=== PATIENT | male | born 1945 | race Caucasian/White ===

== ENCOUNTER 2016-12-14 12:43 | Emergency (ER) | payer MEDICARE, OTHER ==
[2016-12-14 13:03] VITALS: BP 149/94; PULSE 65; RESP 18; TEMP 98
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
== END 2016-12-14 13:47 | disposition home or self-care (01) ==
LOC: SUPCPDRO 12:43 → EC 12:43
DX: G89.4 Chronic pain syndrome (principal); Z76.0 Encounter for issue of repeat prescription; K21.9 Gastro-esophageal reflux disease without esophagitis; E78.5 Hyperlipidemia, unspecified; F32.9 Major depressive disorder, single episode, unspecified; Z87.891 Personal history of nicotine dependence; Z79.891 Long term (current) use of opiate analgesic; Z79.899 Other long term (current) drug therapy
CPT/HCPCS: 99282

== ENCOUNTER 2016-12-19 15:44 | Emergency (ER) | payer MEDICARE, OTHER ==
[2016-12-19 15:53] VITALS: BP 153/84; PULSE 104; RESP 17; TEMP 98.8
[2016-12-19] MEDS ORDERED: KETOROLAC 60 MG/2 ML VIAL IM STA (16:04)
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
== END 2016-12-19 16:22 | disposition home or self-care (01) ==
LOC: EC 15:44
DX: G89.29 Other chronic pain (principal); K21.9 Gastro-esophageal reflux disease without esophagitis; E78.5 Hyperlipidemia, unspecified; F32.9 Major depressive disorder, single episode, unspecified; Z86.711 Personal history of pulmonary embolism; Z86.718 Personal history of other venous thrombosis and embolism; Z87.891 Personal history of nicotine dependence; Z79.891 Long term (current) use of opiate analgesic; Z79.899 Other long term (current) drug therapy
CPT/HCPCS: 99283; 96372; J1885

== ENCOUNTER 2016-12-20 13:59 | Emergency (ER) | payer MEDICARE, OTHER ==
[2016-12-20 14:06] VITALS: RESP 18
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
[2016-12-20] MEDS ORDERED: HYDROcodone/APAP 5-325MG 1 EACH TAB PO STA (16:19)
[2016-12-20 16:23] VITALS: BP 143/98; PULSE 80; TEMP 98
== END 2016-12-20 16:30 | disposition home or self-care (01) ==
LOC: EC 13:59
DX: G89.4 Chronic pain syndrome (principal); M54.9 Dorsalgia, unspecified; F11.10 Opioid abuse, uncomplicated; E78.5 Hyperlipidemia, unspecified; F32.9 Major depressive disorder, single episode, unspecified; Z87.891 Personal history of nicotine dependence; Z79.899 Other long term (current) drug therapy; Z98.1 Arthrodesis status
CPT/HCPCS: 82075; 99284

== ENCOUNTER → 2017-06-18 | Outpatient (CLI) | payer MEDICARE, OTHER ==
--- NOTE | 2017-06-18 12:59 | XR ---
EXAMINATION TYPE: XR cervical spine comp DATE OF EXAM: 06/18/2017 TECHNIQUE: Frontal, lateral, oblique, swimmers, and open mouth view of the cervical spine are obtaine d. HISTORY: M54.2 cervicalgia COMPARISON: 04/16/2016 FINDINGS: There is redemonstration of surgical fusion of C3-6 with intervertebral disc spacers, anter ior fusion plate and vertebral body cortical screws. Multilevel uncovertebral hypertrophy is seen thr oughout the cervical spine. The cervical spine is visualized in its entirety from C1 thru the top of T1 level, it is satisfactory in alignment without evidence of acute fracture or dislocation. The pre -vertebral soft tissue appears within normal limits. The C1-C2 articulation is within normal limits on the open mouth view. The oblique images demonstrated at least mild neural foraminal narrowing at C3-4 and C4-5 on the right and no significant neural foraminal narrowing on the left. No hardware fra cture is appreciated. IMPRESSION: 1. No acute fracture or dislocation is seen in the cervical spine. 2. No hardware fracture. 3. Multilevel uncovertebral hypertrophy resulting in at least mild neural foraminal narrowing at C3-C 4 and C4-C5 on the right.
== END | disposition home or self-care (01) ==
LOC: RADXRMAIN 12:03
PROVIDERS: ATTEND Nurse Practitioner Family
DX: M99.71 Connective tissue and disc stenosis of intervertebral foramina of cervical region (principal)
CPT/HCPCS: 72050

== ENCOUNTER → 2017-12-22 | Outpatient (CLI) | payer MEDICARE, OTHER ==
[2017-12-22 14:01] VITALS: BP 132/77; RESP 18
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
== END ==
LOC: PNWHC3 13:24
PROVIDERS: ATTEND Anesthesiology
DX: G89.29 Other chronic pain (principal); M47.22 Other spondylosis with radiculopathy, cervical region; M96.1 Postlaminectomy syndrome, not elsewhere classified; K21.9 Gastro-esophageal reflux disease without esophagitis; Z79.899 Other long term (current) drug therapy; Z79.891 Long term (current) use of opiate analgesic; Z87.891 Personal history of nicotine dependence
CPT/HCPCS: 99211

== ENCOUNTER → 2018-01-08 | Outpatient (CLI) | payer MEDICARE, OTHER ==
--- NOTE | 2018-01-08 19:09 | MR ---
EXAMINATION TYPE: MR lumbar spine wo/w con DATE OF EXAM: 01/08/2018 11:35 AM COMPARISON: NONE HISTORY: LBP, BLE radic, hx spinal fusion 2004 CONTRAST: The patient was injected with 9 mL intravenous Gadavist gadolinium contrast. Multiplanar, MultiSpin echo imaging of the lumbar spine was performed. L1-L2: Normal disc appearance without desiccation. No herniation, protrusion or disc bulging. No ca nal stenosis is present. Foramina are patent bilaterally. L2-L3: Normal disc appearance without desiccation. Mild disc bulging noted. No canal stenosis is pres ent. Foramina are patent bilaterally. L3-L4: There is evidence of mild disc desiccation. There is posterior central disc protrusion. Mild e ffacement ventral thecal sac. No evidence for central stenosis or lateral recess stenosis. Mild bilat eral foraminal encroachment left greater than right. L4-L5: Moderate disc desiccation noted. Posterocentral mild disc herniation effaces the ventral theca l sac. No evidence for lateral recess stenosis or central stenosis. Bilateral foraminal encroachment noted. L5-S1: Postoperative changes of fusion. Pedicular screws are in place. Alignment is anatomic. Enhanci ng granulation tissue noted. No evidence for recurrent or residual disease. Lumbar segments are intact. No paraspinal masses are identified. Conus medullaris has a normal appe arance. Left renal cyst identified. IMPRESSION: 1. Multilevel degenerative disc disease. 2. Postoperative changes of fusion at L5-S1 with appropriate postoperative alignment. 3. Disc protrusions at L3-4 and L4-5 as discussed above.
== END | disposition home or self-care (01) ==
LOC: RADMRIMAIN 09:52
PROVIDERS: ATTEND Anesthesiology
DX: M51.36 Other intervertebral disc degeneration, lumbar region (principal); M51.26 Other intervertebral disc displacement, lumbar region; Z98.1 Arthrodesis status
CPT/HCPCS: 82565; 72158; 36415; A9581

== ENCOUNTER → 2018-01-26 | Day surgery (SDC) | payer MEDICARE, OTHER ==
[2018-01-21 13:12] VITALS: BMI 29.6
== END ==
LOC: ORPAIN 09:23
PROVIDERS: ATTEND Pain Medicine Pain Medicine

== ENCOUNTER → 2018-05-03 | Outpatient (CLI) | payer MEDICARE, OTHER ==
--- NOTE | 2018-05-03 14:36 | XR ---
EXAMINATION TYPE: XR foot complete bilateral, 3 views each side DATE OF EXAM: 05/03/2018 COMPARISON: NONE HISTORY: 73-year-old male with heel spurring fracture third right metatarsal, pain FINDINGS: Left: There is some degenerative joint space narrowing at the second MTP joint with marginal spurring and s ubchondral cystic change. Small plantar calcaneal spur. No acute fracture, subluxation, or dislocatio n. Right: Impacted fracture deformity third metatarsal head and neck with irregularity and destruction of the a rticular surface. Degenerative joint space narrowing and marginal spurring and subchondral cystic krystina nge within the second MTP joint. Tiny type I accessory navicular. Tiny plantar calcaneal spur. No acu te fracture, subluxation, or dislocation seen. IMPRESSION: 1. Right: Impacted chronic fracture deformity of the third metatarsal head and neck with posttraumati c osteoarthrosis. Second MTP joint OA is also present with tiny plantar calcaneal spur. 2. Left: Moderate second MTP joint OA and small plantar calcaneal spur.
== END | disposition home or self-care (01) ==
LOC: RADXRMAIN 10:52
PROVIDERS: ATTEND Family Medicine
DX: M77.31 Calcaneal spur, right foot (principal); S92.331A Displaced fracture of third metatarsal bone, right foot, initial encounter for closed fracture; M19.172 Post-traumatic osteoarthritis, left ankle and foot; M19.171 Post-traumatic osteoarthritis, right ankle and foot

== ENCOUNTER → 2018-05-25 | Day surgery (SDC) | payer MEDICARE, OTHER ==
[2018-05-23 13:44] VITALS: BMI 28.8
[~2018-05-25] MED LIST: LACTATED RINGERS 1,000 ML IV SCH
== END ==
LOC: ORPAIN 09:00
PROVIDERS: ATTEND Specialist
DX: Z53.9 Procedure and treatment not carried out, unspecified reason (principal)

== ENCOUNTER 2019-03-22 11:36 | Emergency (ER) | payer MEDICARE, OTHER ==
[2019-03-22 11:46] VITALS: TEMP 97.9
[2019-03-22] MEDS ORDERED: SODIUM CHLORIDE 0.9% 1,000 ML IV STA (11:51)
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
[2019-03-22 12:26] LABS: Basophils % (A) 0 %; Eosinophils # (A) 0.2 k/uL (0-0.7); Eosinophils % (A) 3 %; HCT 41.9 % (39.0-53.0); HGB 13.9 gm/dL (13.0-17.5); Lymphocytes # (A) 2.3 k/uL (1.0-4.8); Lymphocytes % (A) 31 %; MCH 30.9 pg (25.0-35.0); MCHC 33.2 g/dL (31.0-37.0); MCV 93.2 fL (80.0-100.0); Mean Platelet Volume 7.4; Monocytes # (A) 0.5 k/uL (0-1.0); Monocytes % (A) 7 %; Neutrophils # (A) 4.2 k/uL (1.3-7.7); Neutrophils % (A) 56 %; Platelet Count 266 k/uL (150-450); RDW 14.1 % (11.5-15.5); WBC 7.5 k/uL (3.8-10.6)
[2019-03-22 12:51] LABS: ALT 24 U/L (21-72); AST 24 U/L (17-59); African American GFR (CKD) >90 (>60 ml/min/1.73 sqM); Albumin 4.6 g/dL (3.5-5.0); Alkaline Phosphatase 89 U/L (38-126); Amylase 39 U/L (30-110); Anion Gap 11 mmol/L; Blood Urea Nitrogen 25 mg/dL (9-20); Calcium 9.9 mg/dL (8.4-10.2); Carbon Dioxide 26 mmol/L (22-30); Chloride 102 mmol/L (98-107); Glucose 109 mg/dL (74-99); Lipase 23 U/L (23-300); Potassium 4.5 mmol/L (3.5-5.1); Sodium 139 mmol/L (137-145); Total Bilirubin 0.7 mg/dL (0.2-1.3); Total Protein 7.7 g/dL (6.3-8.2)
--- NOTE | 2019-03-22 12:58 | XR ---
EXAMINATION TYPE: XR shoulder complete RT DATE OF EXAM: 03/22/2019 COMPARISON: NONE HISTORY: Pain TECHNIQUE: Shoulder examined in 3 views FINDINGS: The humeral head articulates with the glenoid. The acromio-clavicular junction is normal. No acute fractures or dislocations are evident. A follow up study can be performed 7-10 days from acute trauma for continued pain. IMPRESSION: 1. Normal Shoulder
--- NOTE | 2019-03-22 13:06 | XR ---
EXAMINATION TYPE: XR abdomen acute w cxr DATE OF EXAM: 03/22/2019 COMPARISON: None HISTORY: Pain TECHNIQUE: Acute abdominal series performed with frontal chest upright and supine views of the abdome n FINDINGS: Degenerative disc changes are present L4 prior right pedicle screws and disc spacer present L5-S1. Psoas margins are normal. Moderate fecal debris is throughout the colon. No suspicious air-fl uid levels or differential air-fluid levels are present. No free air is evident. No mass effect is ev ident. Hiatal hernia is not excluded. Lungs appear clear. IMPRESSION: 1. Moderate fecal retention. 2. No acute changes.
[2019-03-22 13:12] LABS: Appearance,Urine Clear (Clear); Bilirubin,Urine Negative (Negative); Blood,Urine Negative (Negative); Color,Urine Yellow; Glucose,Urine (UA) Negative (Negative); Ketones,Urine Negative (Negative); Leukocyte Esterase,Urine Negative (Negative); Nitrite,Urine Negative (Negative); Protein,Urine Negative (Negative); Specific Gravity,Urine 1.019 (1.001-1.035); Urobilinogen,Urine <2.0 mg/dL (<2.0)
[2019-03-22] MEDS ORDERED: MORPHINE SULFATE 4 MG/ML SYRINGE IVP STA (13:39)
[2019-03-22] MEDS ORDERED: MAG HYDROX/AL HYDROX/SIMETH 30 ML, HYOSCYAMINE ELIXIR 10 ML, CIMETIDINE HCL 300 MG, LID... PO STA ×4 (13:39)
[2019-03-22] MEDS ORDERED: PANTOPRAZOLE 40 MG/10 ML VIAL IVP STA (13:39)
--- NOTE | 2019-03-22 13:44 | US ---
EXAMINATION TYPE: US gallbladder DATE OF EXAM: 03/22/2019 COMPARISON: NONE CLINICAL HISTORY: Pain. RUQ pain EXAM MEASUREMENTS: Liver Length: 14 cm Gallbladder Wall: 0.3 cm CBD: 0.5 cm Right Kidney: 10.0 x 5.6 x 4.5 cm Pancreas: Obscured by bowel gas Liver: Limited due to rib shadow and body habitus. Gallbladder: No stones seen Evidence for sonographic Sullivan's sign: No CBD: wnl Right Kidney: wnl IMPRESSION: 1. Normal right upper quadrant ultrasound. 2. Limitation due to bowel gas body habitus.
[2019-03-22 14:25] VITALS: BP 153/91; PULSE 65; RESP 18
== END 2019-03-22 14:30 | disposition home or self-care (01) ==
LOC: EC 11:36
DX: R10.13 Epigastric pain (principal); M25.511 Pain in right shoulder; R11.0 Nausea; K21.9 Gastro-esophageal reflux disease without esophagitis; F32.9 Major depressive disorder, single episode, unspecified; G47.30 Sleep apnea, unspecified; Z86.718 Personal history of other venous thrombosis and embolism; Z86.711 Personal history of pulmonary embolism; Z87.19 Personal history of other diseases of the digestive system; Z87.828 Personal history of other (healed) physical injury and trauma; Z87.891 Personal history of nicotine dependence; Z98.1 Arthrodesis status; Z99.89 Dependence on other enabling machines and devices; Z98.890 Other specified postprocedural states; Z79.891 Long term (current) use of opiate analgesic; Z79.899 Other long term (current) drug therapy; Z91.048 Other nonmedicinal substance allergy status
CPT/HCPCS: 36415; 80053; 82150; 83605; 83690; 85025; 81003; 87086; 74022; 73030; 76705; 99285; 96374; 96375; 96361; J2270; C9113

== ENCOUNTER 2019-04-29 10:14 | Emergency (ER) | payer MEDICARE, OTHER ==
[2019-04-29 10:18] VITALS: RESP 18
[2019-04-29] MEDS ORDERED: HYDROmorphone 1 MG/ML 1 ML SYRINGE IM STA (11:07)
[2019-04-29] MEDS ORDERED: ORPHENADRINE 30 MG/ML 2 ML VIAL IM STA (11:08)
[2019-04-29] MEDS ORDERED: ONDANSETRON 4 MG ODT STARTER PACK 2 TAB BTL PO STA (11:09)
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
--- NOTE | 2019-04-29 11:41 | XR ---
EXAMINATION TYPE: XR shoulder complete RT DATE OF EXAM: 04/29/2019 COMPARISON: 03/22/2019 HISTORY: Pain right shoulder TECHNIQUE: Three-view right shoulder FINDINGS: Humeral head articulates with the glenoid. No acute fractures or dislocations are evident. Acromiohumeral space is preserved. No clavicular junction appears normal. IMPRESSION: 1. No acute osseous abnormality right shoulder.
--- NOTE | 2019-04-29 11:42 | XR ---
EXAMINATION TYPE: XR chest 2V DATE OF EXAM: 04/29/2019 COMPARISON: None INDICATION: Pain right shoulder TECHNIQUE: Frontal and lateral views of the chest are obtained. FINDINGS: The heart size is normal. The pulmonary vasculature is normal. The lungs are clear. No acute osseous abnormality is evident. No pneumothorax is evident. IMPRESSION: 1. No acute pulmonary process.
[2019-04-29 12:48] VITALS: BP 122/87; PULSE 77; TEMP 97.8
== END 2019-04-29 12:48 | disposition home or self-care (01) ==
LOC: EC 10:14
DX: M62.838 Other muscle spasm (principal); R11.0 Nausea; R03.0 Elevated blood-pressure reading, without diagnosis of hypertension; K21.9 Gastro-esophageal reflux disease without esophagitis; G47.30 Sleep apnea, unspecified; F32.9 Major depressive disorder, single episode, unspecified; Z87.891 Personal history of nicotine dependence; Z91.048 Other nonmedicinal substance allergy status; Z79.891 Long term (current) use of opiate analgesic; Z79.899 Other long term (current) drug therapy; Z99.89 Dependence on other enabling machines and devices; Z98.1 Arthrodesis status
CPT/HCPCS: 93005; 73030; 71046; 99284; 96372 ×2; J2360; J1170; S0119

== ENCOUNTER → 2019-05-20 | Outpatient (CLI) | payer MEDICARE, OTHER ==
--- NOTE | 2019-05-20 09:47 | MR ---
EXAMINATION TYPE: MR shoulder RT wo con DATE OF EXAM: 05/20/2019 8:32 AM COMPARISON: NONE HISTORY: Rt shoulder pain x 6 wks, no trauma TECHNIQUE: Multiplanar, multisequence imaging of the right shoulder is performed without contrast. FINDINGS: The study is compromised by patient motion artifact. There is no evidence of an os acromiale. There is mild to moderate inflammatory hypertrophic changes in the right AC joint. There is a prominent, 9.5 mm synovial cyst in the right humeral head, an indir ect sign of impingement. There is a 6.2 cm recommend tear involving the anterior fibers of the supraspinatus tendon. No cysts full-thickness tear is seen. No muscular retraction is seen. There is a moderate amount of fluid in the subcoracoid recess as well as surrounding the bicipital te ndon. Biceps tendon is normally situated within the biceps tendon sheath and inserts normally upon th e biceps anchor. IMPRESSION: 1. LIMITED STUDY. 2. 6.2 MM RIM RENT TEAR INVOLVING THE ANTERIOR FIBERS OF SUPRASPINATUS TENDON. 3. INCREASED FLUID SURROUNDING THE BICEPS TENDON MAY REFLECT BICIPITAL PERITENDINITIS. 4. PSEUDOCYSTIC CHANGE IN THE RIGHT HUMERAL HEAD, AN INDIRECT SIGN OF IMPINGEMENT.
== END | disposition home or self-care (01) ==
LOC: RADMRIMAIN 07:20
PROVIDERS: ATTEND Physician Assistant Medical
DX: S46.011A Strain of muscle(s) and tendon(s) of the rotator cuff of right shoulder, initial encounter (principal); M85.611 Other cyst of bone, right shoulder

== ENCOUNTER → 2019-08-25 | Outpatient (CLI) | payer MEDICARE, OTHER | END | disposition home or self-care (01) | LOC: RADMRIMAIN 18:58 | PROVIDERS: ATTEND Physical Medicine & Rehabilitation | DX: Z53.9 Procedure and treatment not carried out, unspecified reason (principal) ==

== ENCOUNTER 2019-09-09 17:46 | Emergency (ER) | payer MEDICARE, OTHER ==
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
[2019-09-09 18:07] LABS: Glucose,Whole Blood 106 mg/dL (75-99)
[2019-09-09] MEDS ORDERED: DIPH,PERTUS(ACELL)TETVAC-LF 0.5 ML VIAL IM ONE (18:08)
[2019-09-09 18:15] LABS: Basophils % (A) 0 %; Eosinophils # (A) 0.2 k/uL (0-0.7); Eosinophils % (A) 1 %; HCT 40.3 % (39.0-53.0); HGB 12.9 gm/dL (13.0-17.5); Lymphocytes # (A) 1.8 k/uL (1.0-4.8); Lymphocytes % (A) 14 %; MCH 30.7 pg (25.0-35.0); MCV 95.9 fL (80.0-100.0); Mean Platelet Volume 7.5; Monocytes # (A) 0.5 k/uL (0-1.0); Monocytes % (A) 4 %; Neutrophils # (A) 10.4 k/uL (1.3-7.7); Neutrophils % (A) 80 %; Platelet Count 288 k/uL (150-450); RDW 11.8 % (11.5-15.5)
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
[2019-09-09 18:29] LABS: Prothrombin Time 10.6 sec (9.0-12.0)
[2019-09-09 18:32] LABS: ALT 33 U/L (4-49); AST 69 U/L (17-59); African American GFR (CKD) >90 (>60 ml/min/1.73 sqM); Alcohol <10 mg/dL; Alkaline Phosphatase 77 U/L (38-126); Amylase 30 U/L (30-110); Anion Gap 8 mmol/L; Blood Urea Nitrogen 22 mg/dL (9-20); Carbon Dioxide 25 mmol/L (22-30); Chloride 105 mmol/L (98-107); Glucose 103 mg/dL (74-99); Non-African American GFR(CKD) >90 (>60 ml/min/1.73 sqM); Sodium 138 mmol/L (137-145); Total Bilirubin 0.9 mg/dL (0.2-1.3)
[2019-09-09 18:37] LABS: Creatine Kinase 253 U/L (55-170)
[2019-09-09 18:41] LABS: Potassium 4.6 mmol/L (3.5-5.1)
[2019-09-09 18:50] LABS: Creatine Kinase MB 3.5 ng/mL (0.0-2.4); Troponin I <0.012 ng/mL (0.000-0.034)
[2019-09-09] MEDS ORDERED: HYDROmorphone 1 MG/ML 1 ML SYRINGE IVP STA ×2 (19:22→20:51)
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
[2019-09-09] MEDS ORDERED: PROPOFOL 10 MG/ML 20 ML VIAL IV ONE (20:51)
[2019-09-09 20:55] VITALS: TEMP 98
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
[2019-09-09 22:54] VITALS: PULSE 72
[2019-09-09 23:02] VITALS: BP 116/87; RESP 16
== END 2019-09-09 22:35 | disposition short-term general hospital (02) ==
LOC: EC 17:46
DX: S73.014A Posterior dislocation of right hip, initial encounter (principal); S32.401A Unspecified fracture of right acetabulum, initial encounter for closed fracture; S60.511A Abrasion of right hand, initial encounter; L98.8 Other specified disorders of the skin and subcutaneous tissue; R07.89 Other chest pain; R10.11 Right upper quadrant pain; R10.12 Left upper quadrant pain; M54.2 Cervicalgia; K21.9 Gastro-esophageal reflux disease without esophagitis; G47.30 Sleep apnea, unspecified; F32.9 Major depressive disorder, single episode, unspecified; Z87.891 Personal history of nicotine dependence; Z91.048 Other nonmedicinal substance allergy status; Z79.891 Long term (current) use of opiate analgesic; Z79.899 Other long term (current) drug therapy; Z87.39 Personal history of other diseases of the musculoskeletal system and connective tissue; Z98.1 Arthrodesis status; Z99.89 Dependence on other enabling machines and devices; Z23 Encounter for immunization; V43.53XA Car driver injured in collision with pick-up truck in traffic accident, initial encounter; Y92.410 Unspecified street and highway as the place of occurrence of the external cause
CPT/HCPCS: 36415; 86900; 86901; 80053; 82150; 82550; 82553; 83605; 83690; 84484; 85025; 85610; 85730; 86850; 80320; 72170; 71045; 72125; 70450; 71260; 74177; 90715; 99291; 27250; 99152; 99153; 96374; 90471; J1170; J2704; Q9967

== ENCOUNTER → 2019-09-09 | Outpatient (CLI) | payer MEDICARE, OTHER ==
--- NOTE | 2019-09-10 11:23 | MR ---
EXAMINATION TYPE: MR lumbar spine wo/w con DATE OF EXAM: 09/09/2019 COMPARISON: 01/08/2018 HISTORY: 74-year-old male Spondylosis, pain. Technique: Multiplanar, multisequence images of the lumbar spine were obtained before and after admin istration of 7.5 mL intravenous Gadavist gadolinium contrast. FINDINGS: Vertebral body heights are preserved. Unchanged grade 1 anterolisthesis at L3-L4 secondary to hypertrophic facet arthropathy mid to lower l umbar spine. Previous posterior and interbody fusion at L4-L5. Accelerated degenerative disc disease above the fusion weighted progressive disc height loss, disc de siccation and edematous Modic type I endplate change. Persistent posterior bulging disc at this level. Scattered ligamentum flavum thickening. [id number] multilevel degenerative disc disease throughout the remainder of the visualized spin e with variable disc desiccation, mild disc height loss, and bulging disks throughout. Stable grade 1 retrolisthesis at T11-T12. Conus medullaris is normal. No suspicious bone marrow replacement. At T12-L1, minimal bulging disc and facet arthropathy. No significant spinal canal stenosis. Mild rig ht neuroforaminal stenosis. At L1-L2, minimal bulging disc and facet arthropathy. No significant canal or foraminal stenosis. At L2-L3, mild bulging disc with ligamentum flavum thickening and facet arthropathy. Changes result i n similar moderate left and mild right neuroforaminal stenosis with mild attenuation of the thecal sa c. No significant spinal canal stenosis. At L3-L4, bulging disc with hypertrophic facet arthropathy, ligamentum flavum thickening, and promine nt dorsal epidural fat. Findings cause similar grade 1 anterolisthesis with mild narrowing of the spi nal canal. Mild right and moderate left neuroforaminal stenosis. At L4-L5, above the fusion, there is bulging disc with ligamentum flavum thickening and hypertrophic facet arthropathy. This results in moderate to severe right neuroforaminal stenosis, similar to sligh tly progressed. Similar moderate left neuroforaminal stenosis. No significant spinal canal stenosis. At the fused L5-S1 level, there is persistent [id number] right and mild left neuroforaminal kristen rowing without spinal canal stenosis. No abnormal epidural or neural enhancing granulation tissue identified. Borderline ectatic suprarenal abdominal aorta at 2.5 cm. Possible 3.6 cm aneurysm infrarenal abdomina l aorta, axial image 10. IMPRESSION: 1. Status post L5-S1 posterior and interbody fusion. Residual mild to moderate right and mild left ne uroforaminal stenosis at this level. No suspicious epidural perineural enhancement. 2. Accelerated degenerative disc disease above the fusion at L4-L5 results in edematous Modic type I endplate change in moderate to severe right neural foraminal stenosis, similar to slightly progressed . Moderate left neuroforaminal stenosis. 3. Hypertrophic facet arthropathy, ligamentum flavum thickening, bulging disc, and similar grade 1 an terolisthesis at L3-L4 causes mild spinal canal stenosis with moderate left neuroforaminal stenosis, relatively similar. 4. 3.6 cm AAA. Upper follow-up surveillance recommended.
== END | disposition home or self-care (01) ==
LOC: RADMRIMAIN 12:44
PROVIDERS: ATTEND Physical Medicine & Rehabilitation
DX: M48.07 Spinal stenosis, lumbosacral region (principal); M48.061 Spinal stenosis, lumbar region without neurogenic claudication; M51.26 Other intervertebral disc displacement, lumbar region; M43.16 Spondylolisthesis, lumbar region; M51.36 Other intervertebral disc degeneration, lumbar region; M46.96 Unspecified inflammatory spondylopathy, lumbar region
CPT/HCPCS: 72158; A9585

== ENCOUNTER → 2020-03-12 | Outpatient (CLI) | payer OTHER ==
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
== END | disposition home or self-care (01) ==
LOC: RADMRIMAIN 13:57
PROVIDERS: ATTEND Orthopaedic Surgery
DX: S83.8X1A Sprain of other specified parts of right knee, initial encounter (principal); R60.9 Edema, unspecified; S83.241A Other tear of medial meniscus, current injury, right knee, initial encounter; M17.11 Unilateral primary osteoarthritis, right knee; M25.461 Effusion, right knee

== ENCOUNTER → 2020-10-09 | Outpatient (CLI) | payer OTHER ==
--- NOTE | 2020-10-09 12:27 | CT ---
EXAMINATION TYPE: CT lumbar spine wo con DATE OF EXAM: 10/09/2020 12:05 PM COMPARISON: None HISTORY: Low back pain. CT DLP: 1039.1 mGycm Automated exposure control for dose reduction was used. Unenhanced CT of the lumbar spine was performed. Bone and soft tissue window settings are submitted as well as coronal and sagittal reconstructions. L1-L2: Normal disc space height. No disc herniation protrusion or central stenosis. No facet joint arthropathy. No evidence for foraminal encroachment. L2-L3: Normal disc space height. No disc herniation protrusion or central stenosis. No facet joint arthropathy. No evidence for foraminal encroachment. L3-L4: Moderate degenerative disc space narrowing. Posterior disc bulge with effacement of the ventra l thecal sac resulting in left lateral recess stenosis and left foraminal encroachment. No definite c entral stenosis at this time. L4-L5: Severe degenerative disc disease with vacuum disc and endplate sclerosis. Posterior disc bulge . No evidence for disc herniation or central stenosis. Facet joint arthropathy with a mild right-side d foraminal encroachment. L5-S1: Postoperative changes of lumbar laminectomy and fusion. Pedicular screws are in place. Interve rtebral body spacers are intact and well-positioned. No evidence for recurrent or residual disease. IMPRESSION: 1. Multilevel degenerative disc disease with left lateral recess stenosis at L3-4. 2. Postoperative changes L5-S1 as noted above.
== END | disposition home or self-care (01) ==
LOC: RADCTMAIN 10:36
PROVIDERS: ATTEND Orthopaedic Surgery
DX: M48.061 Spinal stenosis, lumbar region without neurogenic claudication (principal); M51.36 Other intervertebral disc degeneration, lumbar region; Z98.1 Arthrodesis status; Z98.890 Other specified postprocedural states
CPT/HCPCS: 72131

== ENCOUNTER → 2020-10-09 | Outpatient (CLI) | payer OTHER ==
--- NOTE | 2020-10-09 12:50 | XR ---
EXAMINATION TYPE: XR lumbar spine with bend/flex DATE OF EXAM: 10/09/2020 COMPARISON: CT lumbar spine 10/09/2020 HISTORY: Pain TECHNIQUE: Five-view lumbar spine supplemented with flexion and extension views. FINDINGS: There 5 lumbar-type vertebral bodies. The L1-L4 pedicles are intact. L5 and S1 pedicle scre ws. Disc spacers present L5-S1. Degenerative disc changes are present L4-5. Spondylosis is present. Very subtle anterolisthesis of L3 on L4 may be present. Posterior disc space narrowing is present thr ough the lumbar spine. There is some fusiform prominence of the distal abdominal aorta with an AP dimension estimated at 3.5 cm. The aorta may be displaced away from the lumbar spine in the lateral projection. Consider additi onal workup of the abdominal aorta. This is partially visualized on CT lumbar spine exam. IMPRESSION: 1. Degenerative disc changes throughout the lumbar spine. 2. Grade is loss of disc height is present L4-5. 3. Minimal anterolisthesis on flexion of L3 anterior on L4. 4. Additional workup of the fusiform prominence of the distal abdominal aorta is recommended.
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
--- NOTE | 2020-10-10 00:51 | MR ---
EXAMINATION TYPE: MR lumbar spine wo/w con DATE OF EXAM: 10/09/2020 COMPARISON: September 09, 2019 HISTORY: Evolving right foot drop, evaluate for disc herniation CONTRAST: Standard multiplanar, multisequence MRI departmental protocol utilizing 7.5 mL intravenous Gadavist g adolinium contrast. Lumbar vertebra have normal alignment. There is narrowing of disc spaces throughout the lumbar spine. There is metal artifact from disc prosthesis at L5-S1. There is metal artifact from posterior fusion surgery at L5-S1. There is narrowing of disc spaces at L4-5 and L5-S1. There is bilateral neural for aminal narrowing at L4-5 due to disc space narrowing and facet arthropathy. There is no lumbar parasp inal mass. I see no focal bone destruction. Contrast images show no pathologic enhancement. The visua lized sacroiliac joints are intact. There is no significant lumbar spinal stenosis. There is small po sterior disc bulging at L2-3 and L3-4 without impingement on the spinal canal. Unchanged. IMPRESSION: Posterior fusion surgery. Degenerative disc narrowing at L4-5 and L5-S1. No spinal stenosis. No fract ure. Overall no significant change compared to old exam. L4-5 neural foraminal stenosis not significa ntly changed.
== END | disposition home or self-care (01) ==
LOC: RADMRIMAIN 10:37
PROVIDERS: ATTEND Physical Medicine & Rehabilitation
DX: M48.07 Spinal stenosis, lumbosacral region (principal); M43.16 Spondylolisthesis, lumbar region; M47.816 Spondylosis without myelopathy or radiculopathy, lumbar region; M51.86 Other intervertebral disc disorders, lumbar region; M16.11 Unilateral primary osteoarthritis, right hip; Z98.1 Arthrodesis status; Z98.890 Other specified postprocedural states
CPT/HCPCS: 72114; 73502; 72158; A9585

== ENCOUNTER → 2020-11-27 | Outpatient (CLI) | payer OTHER, MEDICARE ==
--- NOTE | 2020-11-27 15:48 | US ---
EXAMINATION TYPE: US duplex aorta DATE OF EXAM: 11/27/2020 COMPARISON: CT 2020 CLINICAL HISTORY: I71.4 Abdominal aortic aneurysm, without rupture. Distal AAA seen on recent CT EXAM MEASUREMENTS: Abdominal Aorta: Proximal: obscured by overlying midline bowel gas Mid: obscured by overlying midline bowel gas Distal: 2.9 x 3.2cm Bifurcation: obscured by overlying midline bowel gas Mildly aneurysmal distal aorta IMPRESSION: Essentially nondiagnostic examination due to overlying bowel gas. The distal aorta measur ements appear somewhat prominent. CT abdomen may be required for additional evaluation.
== END | disposition home or self-care (01) ==
LOC: RADUSWWP 10:26
PROVIDERS: ATTEND Family Medicine
DX: I71.4 Abdominal aortic aneurysm, without rupture (principal)
CPT/HCPCS: 93979

== ENCOUNTER 2020-11-28 12:09 | Day surgery (SDC) | payer OTHER ==
[2020-11-27 08:57] VITALS: BMI 29.3
[2020-11-28 12:54] VITALS: RESP 18; TEMP 98.9
[2020-11-28] MEDS ORDERED: LACTATED RINGERS 1,000 ML IV ONE (12:58)
[2020-11-28] MEDS ORDERED: LIDOCAINE 1% (10MG/ML) FOR IV START INTRADERMA ONE (12:58)
[2020-11-28] MEDS ORDERED: fentaNYL (PF) 50 MCG/ML 2 ML AMP ONE (13:21)
[2020-11-28] MEDS ORDERED: IOPAMIDOL M200 10 ML VIAL ONE (13:21)
[2020-11-28] MEDS ORDERED: methylPREDNISolone ACETATE 40 MG/ML 1 ML VIAL ONE (13:21)
[2020-11-28] MEDS ORDERED: MIDAZOLAM 2 MG/2 ML VIAL ONE (13:21)
--- NOTE | 2020-11-28 13:40 | P.PCN ---
Date of Procedure: 11/28/20 Procedure(s) Performed: PREOPERATIVE DIAGNOSIS:1- Lumbar radiculopathy . POSTOPERATIVE DIAGNOSIS: Same as preoperative diagnoses. PROCEDURE 1. Transforaminal epidural steroid injection under fluoroscopic guidance at right L4-5 level. (Fluoroscopy images stored on file in the radiology Department ) 2. Lumbar epidurogram . ANESTHESIA: Local with 1% lidocaine 3 ml , moderate sedation with intravenous Versed 2 mg and fentanyle 50 micrograms. EBL: Minimal PROCEDURE INDICATION: The patient with low back pain and radiculopathy symptoms unresponsive to conservative treatment. PROCEDURE DESCRIPTION / TECHNIQUE: The patient was seen and identified in the preoperative area. Risks, benefits, complications, and alternatives were discussed with the patient. The patient agreed to proceed with the procedure and signed the consent. IV was started, and vital signs were stable. Patient was taken to the OR and time out was completed. The patient was placed in the prone position on procedure table and a pillow was placed under the abdomen to reduce lumbar lordosis. The lumbosacral area was prepped and draped in the usual sterile fashion. Critical pause was taken. Vital signs were closely monitored during the procedure. Conscious sedation was used during the procedure to decrease patient s anxiety. Using oblique fluoroscopy, the chin of the `Josey dog at right L4-5 level was identified, and the skin and deeper tissues just below was localized with 1% lidocaine. Subsequently, a 22-gauge 3.5-inch spinal needle was advanced under a tunneled view fluoroscopic guidance just underneath the chin of the `Josey dog at the right L4-5 Under lateral fluoroscopy, the needle was then advanced to the posterior border of the interforaminal space. After negative aspiration of CSF and blood and with no paresthesias, 1 mL Isovue 200 contrast dye was injected excellent epidurogram and outlining of the nerve root Subsequently, 3 mL of block solution containing 40 mg Depo-Medrol and 2 mL of 0.9% normal saline PF was injected. Needle was removed . At the end of the procedure, skin was cleansed, and bandages were applied. COMPLICATIONS:none DISPOSITION / PLANS: The patient was placed in a supine position and transferred to the recovery area in a stable condition for observation. There was no evidence of lower extremity motor or sensory deficit after the procedure. Patient was discharged from the recovery room after meeting discharge criteria. Home discharge instructions were given to the patient by the staff. The patient was reexamined prior to discharge. note = patient has a history of fusion at L5-S1
[2020-11-28] MEDS ORDERED: IV FLUID CONTINUATION 1,000 ML IV ONE (13:42)
[2020-11-28 14:08] VITALS: BP 103/65; PULSE 68
--- NOTE | 2020-11-29 11:04 | FL ---
EXAMINATION TYPE: FL guided pain mgmt statistic DATE OF EXAM: 11/28/2020 HISTORY: Fluoroscopy time 9 seconds of fluoroscopy provided. IMPRESSION: 1. Fluoroscopy time.
== END 2020-11-28 14:21 | disposition home or self-care (01) ==
LOC: ORPAIN 12:09
PROVIDERS: ATTEND Specialist
DX: M54.16 Radiculopathy, lumbar region (principal); M48.061 Spinal stenosis, lumbar region without neurogenic claudication; Z98.1 Arthrodesis status
CPT/HCPCS: 64483; J2250; J1030; J3010; Q9966

== ENCOUNTER 2020-12-24 08:13 | Day surgery (SDC) | payer OTHER ==
[2020-12-17 12:21] VITALS: BMI 30.4
[2020-12-24 08:35] VITALS: RESP 18; TEMP 97.8
[2020-12-24] MEDS ORDERED: LACTATED RINGERS 1,000 ML IV ONE (08:35)
[2020-12-24] MEDS ORDERED: LIDOCAINE 1% (10MG/ML) FOR IV START INTRADERMA ONE (08:42)
[2020-12-24] MEDS ORDERED: fentaNYL (PF) 50 MCG/ML 2 ML AMP ONE (08:58)
[2020-12-24] MEDS ORDERED: methylPREDNISolone ACETATE 40 MG/ML 1 ML VIAL ONE (08:58)
[2020-12-24] MEDS ORDERED: MIDAZOLAM 2 MG/2 ML VIAL ONE (08:58)
[2020-12-24] MEDS ORDERED: IOPAMIDOL M200 10 ML VIAL ONE (08:58)
--- NOTE | 2020-12-24 09:14 | P.PCN ---
Date of Procedure: 12/24/20 Procedure(s) Performed: PREOPERATIVE DIAGNOSIS:1- Lumbar radiculopathy . POSTOPERATIVE DIAGNOSIS: Same as preoperative diagnoses. PROCEDURE 1. Transforaminal epidural steroid injection under fluoroscopic guidance at right L4-5 level. (Fluoroscopy images stored on file in the radiology Department ) 2. Lumbar epidurogram . ANESTHESIA: Local with 1% lidocaine 3 ml , moderate sedation with intravenous Versed 1 mg and fentanyle 50 micrograms. EBL: Minimal PROCEDURE INDICATION: The patient with low back pain and radiculopathy symptoms unresponsive to conservative treatment. PROCEDURE DESCRIPTION / TECHNIQUE: The patient was seen and identified in the preoperative area. Risks, benefits, complications, and alternatives were discussed with the patient. The patient agreed to proceed with the procedure and signed the consent. IV was started, and vital signs were stable. Patient was taken to the OR and time out was completed. The patient was placed in the prone position on procedure table and a pillow was placed under the abdomen to reduce lumbar lordosis. The lumbosacral area was prepped and draped in the usual sterile fashion. Critical pause was taken. Vital signs were closely monitored during the procedure. Conscious sedation was used during the procedure to decrease patient s anxiety. Using oblique fluoroscopy, the chin of the `Josey dog at right L4-5 level was identified, and the skin and deeper tissues just below was localized with 1% lidocaine. Subsequently, a 22-gauge 3.5-inch spinal needle was advanced under a tunneled view fluoroscopic guidance just underneath the chin of the `Josey dog at the right L4-5 Under lateral fluoroscopy, the needle was then advanced to the posterior border of the interforaminal space. After negative aspiration of CSF and blood and with no paresthesias, 1 mL Isovue 200 contrast dye was injected excellent epidurogram and outlining of the nerve root Subsequently, 3 mL of block solution containing 40 mg Depo-Medrol and 2 mL of 0.9% normal saline PF was injected. Needle was removed . At the end of the procedure, skin was cleansed, and bandages were applied. COMPLICATIONS:none DISPOSITION / PLANS: The patient was placed in a supine position and transferred to the recovery area in a stable condition for observation. There was no evidence of lower extremity motor or sensory deficit after the procedure. Patient was discharged from the recovery room after meeting discharge criteria. Home discharge instructions were given to the patient by the staff. The patient was reexamined prior to discharge. note = patient has a history of fusion at L5-S1
[2020-12-24] MEDS ORDERED: IV FLUID CONTINUATION 1,000 ML IV ONE ×2 (09:19)
--- NOTE | 2020-12-24 09:35 | FL ---
EXAMINATION TYPE: FL guided pain mgmt statistic DATE OF EXAM: 12/24/2020 FLUOROSCOPY Fluoroscopy time of 5 seconds was used during transforaminal epidural steroid injection. 2 image/s d ocument/s the procedure.
[2020-12-24 09:44] VITALS: BP 121/72; PULSE 64
== END 2020-12-24 09:59 | disposition home or self-care (01) ==
LOC: ORPAIN 08:13
PROVIDERS: ATTEND Specialist
DX: M54.16 Radiculopathy, lumbar region (principal)
CPT/HCPCS: 62323; 64483; J2250; J1030; J3010; Q9966; 99152

== ENCOUNTER 2021-01-23 12:20 | Day surgery (SDC) | payer MEDICARE, OTHER ==
[2021-01-21 10:44] VITALS: BMI 28.8
[2021-01-23 13:21] VITALS: TEMP 98.3
[2021-01-23] MEDS ORDERED: fentaNYL (PF) 50 MCG/ML 2 ML AMP ONE (14:06)
[2021-01-23] MEDS ORDERED: MIDAZOLAM 2 MG/2 ML VIAL ONE (14:06)
[2021-01-23] MEDS ORDERED: LIDOCAINE 1% INJ 10MG/ML (20 ML MDV) ONE (14:06)
[2021-01-23] MEDS ORDERED: IOPAMIDOL M200 10 ML VIAL ONE (14:06)
[2021-01-23] MEDS ORDERED: DEXAMETHASONE SOD PHOSPHATE 10 MG/ML 1 ML VIAL ONE (14:06)
--- NOTE | 2021-01-23 14:18 | P.PCN ---
Date of Procedure: 01/23/21 Surgeon: Anne Oropeza Pathology: none sent Condition: stable Disposition: PACU Description of Procedure: PREOPERATIVE DIAGNOSIS: Lumbar radiculopathy POSTOPERATIVE DIAGNOSIS: Lumbar radiculopathy PROCEDURE 1. Transforaminal epidural steroid injection under fluoroscopic guidance at L3-4 left 2. Lumbar epidurogram. SURGEON: Anne Oropeza MD ANESTHESIA: Local with 1% lidocaine; IV sedation with Versed and fentanyl. EBL: Minimal PROCEDURE INDICATION: The patient with low back pain and radiculopathy symptoms unresponsive to conservative treatment. PROCEDURE DESCRIPTION / TECHNIQUE: The patient was seen and identified in the preoperative area. Risks, benefits, complications, and alternatives were discussed with the patient. The patient agreed to proceed with the procedure and signed the consent. IV was started, and vital signs were stable. Patient was taken to the OR and time out was completed. The patient was placed in the prone position on procedure table and a pillow was placed under the abdomen to reduce lumbar lordosis. The lumbosacral area was prepped and draped in the usual sterile fashion. Critical pause was taken. Vital signs were closely monitored during the procedure. Conscious sedation was used during the procedure to decrease patients anxiety. The vertebral body of the lumbar vertebra L3 was squared off by tilting the C-arm cephalad then the C-arm was tilted to the oblique position and the target point was at the 6 o'clock position of the pedicle of L3 then skin and deeper tissues were localized with 1% lidocaine. Subsequently, a 22-gauge 3.5- inch spinal needle was advanced under a tunneled view fluoroscopic guidance just underneath the chin of the Nader dog at the . Under lateral fluoroscopy, the needle was then advanced to the middle of the upper one third of the foramen between( L3-4). After negative aspiration of CSF and blood and with no paresthesias, 1 mL of omnipaque contrast dye was injected excellent epidurogram and outlining of the L3 nerve root was identified. Subsequently, 2 mL of block solution containing 10 mg of Decadron and 1 mL of Lidocaine 1% PF was injected. Needle was removed intact . At the end of the procedure, skin was cleansed, and bandages were applied. COMPLICATIONS: None COMMENTS: DISPOSITION / PLANS: The patient was placed in a supine position and transferred to the recovery area in a stable condition for observation. There was no evidence of lower extremity motor or sensory deficit after the procedure. Patient was discharged from the recovery room after meeting discharge criteria. Home discharge instructions were given to the patient by the staff.
[2021-01-23] MEDS ORDERED: IV FLUID CONTINUATION 700 ML IV ONE (14:26)
[2021-01-23 14:33] VITALS: RESP 20
[2021-01-23 14:43] VITALS: BP 153/78; PULSE 70
--- NOTE | 2021-01-23 15:59 | FL ---
Fluoroscopy HISTORY: Pain 14 seconds fluoroscopy time supplied to the referring clinician. 2 intraoperative C-arm images docum ent the procedure. See dictated report from anesthesia.
== END 2021-01-23 15:20 | disposition home or self-care (01) ==
LOC: ORPAIN 12:20
PROVIDERS: ATTEND Anesthesiology
DX: M54.16 Radiculopathy, lumbar region (principal); M19.90 Unspecified osteoarthritis, unspecified site
CPT/HCPCS: 64483; J2250; J1100; J2001; J3010; Q9966

== ENCOUNTER 2021-03-01 04:59 | Observation (INO) | payer MEDICARE, OTHER ==
[2021-03-01] MEDS ORDERED: SODIUM CHLORIDE 0.9% 1,000 ML IV STA (05:03)
[2021-03-01] MEDS ORDERED: MORPHINE SULFATE 4 MG/ML SYRINGE IV STA (05:03)
[2021-03-01] MEDS ORDERED: ONDANSETRON 4 MG/2 ML VIAL IVP STA (05:14)
[2021-03-01] MEDS ORDERED: PANTOPRAZOLE 40 MG/10 ML VIAL IVP STA (05:14)
[2021-03-01] MEDS ORDERED: DEXAMETHASONE SOD PHOSPHATE 10 MG/ML 1 ML VIAL IV STA (05:16)
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
[2021-03-01 05:34] LABS: Basophils % (A) 0 %; Eosinophils # (A) 0.1 k/uL (0-0.7); Eosinophils % (A) 1 %; HCT 43.5 % (39.0-53.0); Lymphocytes # (A) 1.6 k/uL (1.0-4.8); Lymphocytes % (A) 10 %; MCH 33.2 pg (25.0-35.0); MCHC 34.4 g/dL (31.0-37.0); MCV 96.8 fL (80.0-100.0); Mean Platelet Volume 7.4; Monocytes # (A) 0.6 k/uL (0-1.0); Monocytes % (A) 4 %; Neutrophils # (A) 13.6 k/uL (1.3-7.7); Neutrophils % (A) 85 %; Platelet Count 246 k/uL (150-450); RDW 11.9 % (11.5-15.5); WBC 16.1 k/uL (3.8-10.6)
[2021-03-01 05:40] LABS: ALT 20 U/L (4-49); AST 25 U/L (17-59); African American GFR (CKD) >90 (>60 ml/min/1.73 sqM); Albumin 5.2 g/dL (3.5-5.0); Alkaline Phosphatase 116 U/L (38-126); Amylase 46 U/L (30-110); Anion Gap 13 mmol/L; Blood Urea Nitrogen 10 mg/dL (9-20); Calcium 10.8 mg/dL (8.4-10.2); Carbon Dioxide 28 mmol/L (22-30); Chloride 99 mmol/L (98-107); Glucose 154 mg/dL (74-99); Lipase 26 U/L (23-300); Non-African American GFR(CKD) >90 (>60 ml/min/1.73 sqM); Phosphorus 1.8 mg/dL (2.5-4.5); Potassium 4.4 mmol/L (3.5-5.1); Sodium 140 mmol/L (137-145); Total Bilirubin 0.6 mg/dL (0.2-1.3); Total Protein 8.2 g/dL (6.3-8.2)
[2021-03-01 05:57] LABS: Creatine Kinase 54 U/L (55-170)
--- NOTE | 2021-03-01 06:06 | CT ---
EXAMINATION TYPE: CT abdomen pelvis w con DATE OF EXAM: 03/01/2021 COMPARISON: 09/09/2019 HISTORY: pain, nausea and vomiting. rule out dissection. Pt. unable to do 3 min. delay. prior CAP on PACS CT DLP: 1238 mGycm Automated exposure control for dose reduction was used. CONTRAST: Performed with IV Contrast, patient injected with 100ml mL of Isovue 370. Liver spleen pancreas stomach appear intact. There is dilated gallbladder that measures 6.4 cm in cordelia meter. The bile ducts are not dilated. There is no adrenal mass. Kidneys show satisfactory contrast opacification. There is no hydronephrosi s. There is atheromatous change in the abdominal aorta. There is no dissection. There is no retroperi toneal adenopathy. Bladder distends smoothly. There is enlarged prostate that measures 6 cm. There is no inguinal hernia. There is no free fluid in the pelvis. There is no mesenteric edema. There is no ascites or free air. There is no bowel obstruction. Appendi x is not seen. There is no sign of thickened appendix. There is focal aneurysm of the lower abdominal aorta on the left lateral wall that measures 2 cm. There is sigmoid diverticulosis without diverticu litis. There is metal artifact from posterior fusion surgery at L5-S1. The lumbar vertebra have fairly poppy l alignment. There is no compression fracture. The bony pelvis is intact. There is plate with screws fixing old right acetabular fracture. IMPRESSION: No evidence of aortic dissection. There is thrombosed aneurysm on the left lateral wall of the abdomi nal aorta that is not significantly different than old CT scan. Markedly dilated gallbladder suggestive of cholecystitis. Dilated gallbladder is a change compared to old exam.
[2021-03-01 06:11] LABS: Creatine Kinase MB 1.9 ng/mL (0.0-2.4); Troponin I <0.012 ng/mL (0.000-0.034)
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
[2021-03-01] MEDS ORDERED: HYDROmorphone 1 MG/ML 1 ML SYRINGE IVP STA (06:25)
[2021-03-01] MEDS ORDERED: AMPICILLIN-SULBACTAM 3 GM in SODIUM CHLORIDE 0.9% 100 ML IVPB STA (06:25)
[2021-03-01] MEDS ORDERED: HYDROmorphone 1 MG/ML 1 ML SYRINGE IVP PRN ×2 (06:25→13:04)
[2021-03-01] MEDS ORDERED: SODIUM CHLORIDE 0.9% 1,000 ML IV SCH (06:30)
[2021-03-01] MEDS ORDERED: NALOXONE 0.4 MG/ML 1 ML VIAL IV PRN (06:30)
[2021-03-01] MEDS ORDERED: ONDANSETRON 4 MG/2 ML VIAL IVP PRN (06:30)
[2021-03-01 06:49] LABS: Amorphous Sediment,Urine Few /hpf; Appearance,Urine Cloudy (Clear); Bilirubin,Urine Negative (Negative); Blood,Urine Negative (Negative); Color,Urine Light Yellow; Glucose,Urine (UA) Negative (Negative); Ketones,Urine Negative (Negative); Leukocyte Esterase,Urine Negative (Negative); Mucus,Urine Rare /hpf; Nitrite,Urine Negative (Negative); Protein,Urine Negative (Negative); RBC,Urine 1 /hpf (0-5); Specific Gravity,Urine 1.024 (1.001-1.035); Squamous Epithelial Cell,Urine <1 /hpf (0-4); Urobilinogen,Urine <2.0 mg/dL (<2.0); WBC,Urine 1 /hpf (0-5)
--- NOTE | 2021-03-01 07:34 | US ---
EXAMINATION TYPE: US gallbladder DATE OF EXAM: 03/01/2021 COMPARISON: 03/22/2019 CLINICAL HISTORY: joe. N/V, pain EXAM MEASUREMENTS: Liver Length: 14.7 cm Gallbladder Wall: 0.1 cm CBD: 0.3 cm Right Kidney: 9.4 x 5.0 x 5.3 cm Very limited exam due to overlying bowel gas Pancreas: Obscured by bowel gas Liver: Scanned through ribs. Left lobe not visualized due to bowel gas Gallbladder: Enlarged in size. Evidence for sonographic Sullivan's sign: neg CBD: wnl Right Kidney: No hydronephrosis or masses seen IMPRESSION: Gallbladder hydrops with a maximal measurement of about 10.7 cm. No definite cholelithiasis or perich olecystic fluid.
[2021-03-01 08:30] VITALS: RESP 16
[2021-03-01] MEDS ORDERED: HYDROmorphone 0.5 MG/0.5 ML SYRINGE IVP STA (10:36)
[2021-03-01] MEDS ORDERED: KETOROLAC 15 MG/ML 1 ML VIAL IVP PRN (13:04)
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
[2021-03-01 14:04] VITALS: BP 155/88; PULSE 70; TEMP 98.3
[2021-03-01] MEDS ORDERED: BUTALB/APAP/CAFF 50-325-40MG TAB PO PRN (14:42)
[2021-03-01] MEDS ORDERED: PANTOPRAZOLE 40 MG TABLET PO SCH (14:45)
[2021-03-01] MEDS ORDERED: lisinopriL 20 MG TAB PO SCH (14:45)
[2021-03-01] MEDS ORDERED: buPROPion SR 150 MG TABLET.ER PO SCH (14:45)
[2021-03-01] MEDS ORDERED: ATORVASTATIN 20 MG TAB PO SCH (14:45)
[2021-03-01] MEDS ORDERED: DOXAZOSIN 4 MG TAB PO SCH (14:45)
[2021-03-01] MEDS ORDERED: TEMAZEPAM 15 MG CAP PO PRN (14:52)
[2021-03-01] MEDS ORDERED: ALPRAZolam 0.25 MG TAB PO PRN (14:52)
[2021-03-01] MEDS ORDERED: PIPERACILLIN-TAZOBACTAM 3.375 GM in SODIUM CHLORIDE 0.9% 100 ML IVPB SCH (15:00)
[2021-03-01] MEDS ORDERED: AMPICILLIN-SULBACTAM 3 GM in SODIUM CHLORIDE 0.9% 100 ML IVPB SCH (15:00)
[2021-03-01] MEDS ORDERED: HEPARIN SODIUM,PORCINE/PF 5,000 UNIT/0.5 ML SYRINGE SQ SCH (15:00)
[2021-03-01] MEDS ORDERED: GABAPENTIN 400 MG CAP PO SCH (16:00)
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
--- NOTE | 2021-03-01 16:57 | CONS ---
CONSULTATION DATE OF SERVICE: 03/01/2021 REASON FOR CONSULTATION: Cholecystitis. HISTORY OF PRESENT ILLNESS: The patient is a 75-year-old male who presented to the ER early this morning for evaluation of nausea, vomiting, and abdominal pain. The patient's symptoms started early this morning. The patient did mention he did microwave some fish and mashed potatoes that he had for dinner. However he woke up with severe pain in the epigastric area. Pain described to be sharp intensity almost 10/10 with some radiation to the right upper quadrant area with associated nausea, vomiting, with multiple episodes of vomiting before he presented to the hospital. With these symptoms, the patient was evaluated by the ER physician. On arrival to the ER, the patient was afebrile and no fever has been recorded. Subsequently the patient did have white count 16.1. The patient did have normal kidney function. Did have elevated lactic acid. Liver enzymes are normal though. Amylase lipase were normal. Urine was negative. The patient did have a CT of abdomen and pelvis completed that was suspicious for cholecystitis. CT angiogram of the chest did not show any aneurysm or dissection and no evidence of any PE. No acute lung disease. Ultrasound did not show any suspicious for cholecystitis. The patient is currently being treated with Unasyn 3 g q.8 hours. Infectious Disease was consulted for further management. The patient seems to be slightly upset as he has been told that HIDA scan needs to be done and cannot be done until Wednesday and he wants to leave AGAINST MEDICAL ADVICE. REVIEW OF SYSTEMS: Positive points have been mentioned in HPI. Rest of systems are negative. PAST MEDICAL HISTORY: DVT, gastroesophageal reflux disease, hyperlipidemia, PE, sleep apnea, chronic back pain. PAST SURGICAL HISTORY: Back surgery, hernia repair, lumbar fusion, Two Dot filter placement and right hip surgery. SOCIAL HISTORY: No history of smoking, drinking or drug use. FAMILY HISTORY: Father history of CVA/TIA. ALLERGIES: No known drug allergies. MEDICATIONS: The patient is currently on Unasyn 3 grams q.8 hours, Lipitor, Wellbutrin, Cardura, Neurontin, heparin subcu, Dilaudid, Toradol, Zestril, MS Contin, Zofran, Percocet, Zosyn. PHYSICAL EXAMINATION: Blood pressure 155/88 with a pulse of 70, temperature 98.3. He is 96% on room air. General description: The patient is an elderly male up in the bed in no distress. No tachypnea or accessory muscles of respiration use. HEENT: Examination shows no pallor or scleral icterus. Oral mucous membranes dry. NECK: Trachea central. No thyromegaly. LUNGS: Unlabored breathing. Clear to auscultation with no wheeze or crackles. HEART S1, S2. Regular rate and rhythm. ABDOMEN: Soft. The patient is tender in the right upper quadrant area. No guarding. No rigidity. No organomegaly. EXTREMITIES: No edema of feet. SKIN examination: No rash or mass palpable. NEUROLOGICAL: The patient is awake, alert, oriented times three. Mood and affect normal. LABS: Hemoglobin is 15.4, white count 16.1. BUN of 10, creatinine 0.73. Lactic acid elevated though trending down. Electrolytes normal. Liver enzymes normal. Amylase and lipase has been normal. CT report mentioned above. DIAGNOSTIC IMPRESSION/PLAN: Patient admitted to the hospital with intractable nausea, vomiting and abdominal pain in this patient who is tender in the right upper quadrant area, high clinical suspicion for acute cholecystitis and we will need to cover for the enteric gram-negative both aerobes and anaerobes. PLAN: 1. The patient has been advised to stay in the hospital until HIDA scan is completed. As untreated cholecystitis can lead to perforation and further complications. However, the patient is adamant about living. 2. Patient to continue with Zosyn 3.375 g q.8 hours. 3. Await HIDA scan. Thank you for this consultation. We will follow the patient while the patient is in the hospital. MMODL / IJN: [id number] /
[2021-03-01] MEDS ORDERED: MORPHINE SULFATE ER 30 MG TABLET PO SCH (17:00)
[2021-03-01] MEDS ORDERED: MORPHINE SULFATE ER 15 MG TABLET PO SCH (17:00)
[2021-03-01] MEDS ORDERED: TAMSULOSIN 0.4 MG CAP.ER.24H PO SCH (21:00)
[2021-03-01] MEDS ORDERED: oxyCODONE-APAP 10-325MG 1 EACH TAB PO SCH (21:00)
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
== END 2021-03-01 15:00 | disposition left against medical advice (07) ==
LOC: EC 04:59 → SUPCPDRO 04:59 → 4SSUR 06:31
PROVIDERS: ADMIT Hospitalist; ATTEND Hospitalist
DX: R10.9 Unspecified abdominal pain (principal); K82.1 Hydrops of gallbladder; R79.89 Other specified abnormal findings of blood chemistry; R11.2 Nausea with vomiting, unspecified; E86.0 Dehydration; R19.7 Diarrhea, unspecified; E83.52 Hypercalcemia; Z53.29 Procedure and treatment not carried out because of patient's decision for other reasons; Z20.822 Contact with and (suspected) exposure to COVID-19; K21.9 Gastro-esophageal reflux disease without esophagitis; E78.5 Hyperlipidemia, unspecified; G47.30 Sleep apnea, unspecified; R61 Generalized hyperhidrosis; G89.4 Chronic pain syndrome; M54.9 Dorsalgia, unspecified; J30.2 Other seasonal allergic rhinitis; R63.0 Anorexia; F32.9 Major depressive disorder, single episode, unspecified; M19.90 Unspecified osteoarthritis, unspecified site; Z79.899 Other long term (current) drug therapy; Z86.711 Personal history of pulmonary embolism; Z87.11 Personal history of peptic ulcer disease; Z87.891 Personal history of nicotine dependence; Z98.1 Arthrodesis status; Z86.718 Personal history of other venous thrombosis and embolism
CPT/HCPCS: 96376; 96361; 96365; 96375; 99285; 36415; 93005; 80053; 82150; 82550; 82553; 83605; 83690; 83735; 84100; 84484; 85025; 81001; 87635; 76705; 71275; 74177; G0378; J2270; J1100; J2405; J1170 ×2; J0295; C9113; Q9967

== ENCOUNTER 2021-03-03 10:48 | Observation (INO) | payer MEDICARE, OTHER ==
[2021-03-03] MEDS ORDERED: ONDANSETRON 4 MG/2 ML VIAL IVP STA (12:09)
[2021-03-03] MEDS ORDERED: SODIUM CHLORIDE 0.9% 1,000 ML IV STA ×2 (12:09→15:52)
[2021-03-03] MEDS ORDERED: SODIUM CHLORIDE 0.9% 500 ML 500 ML IV STA (12:09)
[2021-03-03] MEDS ORDERED: FAMOTIDINE 20 MG/2 ML VIAL IV STA (12:10)
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
[2021-03-03 12:37] LABS: Basophils % (A) 0 %; Eosinophils % (A) 0 %; HGB 12.2 gm/dL (13.0-17.5); Lymphocytes # (A) 1.1 k/uL (1.0-4.8); Lymphocytes % (A) 8 %; MCH 31.8 pg (25.0-35.0); MCHC 32.1 g/dL (31.0-37.0); Mean Platelet Volume 7.5; Monocytes # (A) 0.7 k/uL (0-1.0); Monocytes % (A) 5 %; Neutrophils # (A) 11.8 k/uL (1.3-7.7); Neutrophils % (A) 86 %; Platelet Count 181 k/uL (150-450); RBC 3.84 m/uL (4.30-5.90); RDW 12.8 % (11.5-15.5); WBC 13.8 k/uL (3.8-10.6)
--- NOTE | 2021-03-03 12:38 | XR ---
EXAMINATION TYPE: XR KUB DATE OF EXAM: 03/03/2021 12:29 PM CLINICAL HISTORY: 75-year-old with abdominal pain TECHNIQUE: Single supine KUB image of the abdomen is obtained. COMPARISON: CT abdomen and pelvis 03/01/2021. FINDINGS: Nonspecific, nonobstructive bowel gas pattern. Stool and gas are scattered throughout the colon. Elev ation of the right hemidiaphragm. Surgical hardware at L5-S1 and the right pelvis including acetabulu m. impression: 1. Nonspecific, nonobstructive bowel gas pattern. 2. Surgical hardware at L5-S1 and the right acetabular region. 3. Mild elevation right hemidiaphragm.
[2021-03-03 12:41] LABS: Partial Thromboplastin Time 25.3 sec (22.0-30.0); Prothrombin Time 10.5 sec (9.0-12.0)
[2021-03-03 12:43] LABS: Albumin 3.6 g/dL (3.5-5.0); Total Bilirubin 0.9 mg/dL (0.2-1.3); Total Protein 6.4 g/dL (6.3-8.2)
[2021-03-03 14:04] LABS: Appearance,Urine Cloudy (Clear); Bacteria,Urine Rare /hpf; Bilirubin,Urine Negative (Negative); Blood,Urine Trace (Negative); Color,Urine Yellow; Glucose,Urine (UA) Negative (Negative); Granular Casts,Urine 5 /lpf (0); Hyaline Casts,Urine 26 /lpf (0-2); Ketones,Urine Negative (Negative); Leukocyte Esterase,Urine Negative (Negative); Mucus,Urine Occasional /hpf; Nitrite,Urine Negative (Negative); Protein,Urine 1+ (Negative); RBC,Urine 1 /hpf (0-5); Specific Gravity,Urine 1.021 (1.001-1.035); Squamous Epithelial Cell,Urine <1 /hpf (0-4); Urobilinogen,Urine <2.0 mg/dL (<2.0); WBC,Urine 2 /hpf (0-5)
[2021-03-03] MEDS ORDERED: NALOXONE 0.4 MG/ML 1 ML VIAL IV PRN (15:52)
[2021-03-03] MEDS ORDERED: ONDANSETRON 4 MG/2 ML VIAL IVP PRN (15:52)
[2021-03-03] MEDS: SODIUM CHLORIDE 0.9% 1,000 ML IV SCH (16:34)
--- NOTE | 2021-03-03 18:19 | CT ---
EXAMINATION TYPE: CT abdomen pelvis wo con DATE OF EXAM: 03/03/2021 COMPARISON: 03/01/2021 HISTORY: Abdominal pain. CT DLP: 915.8 mGycm Automated exposure control for dose reduction was used. TECHNIQUE: Helical acquisition of images was performed from the lung bases through the pelvis. FINDINGS: LUNG BASES: No significant abnormality is appreciated. LIVER/GB: Redemonstrated distended gallbladder with interval wall thickening and without obvious gall stones seen. No significant intraductal dictation. Otherwise no acute abnormality of the liver. PANCREAS: No significant abnormality is seen. SPLEEN: No significant abnormality is seen. ADRENALS: No significant abnormality is seen. KIDNEYS: No significant abnormality is seen. FREE AIR: No free air is visualized RETROPERITONEAL ADENOPATHY: None visualized REPRODUCTIVE ORGANS: No significant abnormality is seen URINARY BLADDER: Mildly distended, otherwise unremarkable. PELVIC ADENOPATHY: None visualized. OSSEOUS STRUCTURES: No acute abnormality is seen. L5-S1 fusion and right acetabular ORIF seen. BOWEL: No significant abnormality is seen. No free air or significant free fluid. 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 IMPRESSION: REDEMONSTRATED DISTENDED GALLBLADDER WITH INTERVAL WALL THICKENING AND WITHOUT OBVIOUS GALLSTONE. FIN DINGS ARE CONCERNING FOR ACUTE CHOLECYSTITIS. OTHERWISE STABLE CHRONIC FINDINGS.
[2021-03-03] MEDS ORDERED: BUTALB/APAP/CAFF 50-325-40MG TAB PO PRN (18:36)
--- NOTE | 2021-03-03 19:11 | XR ---
EXAMINATION TYPE: XR chest 1V portable DATE OF EXAM: 03/03/2021 COMPARISON: NONE HISTORY: Chest pain. TECHNIQUE: Single frontal view of the chest is obtained. FINDINGS: There is no focal air space opacity, pleural effusion, or pneumothorax seen. The cardiac silhouette size is mildly enlarged. The osseous structures are intact. IMPRESSION: No acute process.
[2021-03-03] MEDS: GABAPENTIN 400 MG CAP PO SCH (20:28)
[2021-03-03] MEDS: PIPERACILLIN-TAZOBACTAM 3.375 GM in SODIUM CHLORIDE 0.9% 100 ML IVPB SCH (20:28)
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
[2021-03-03] MEDS ORDERED: oxyCODONE-APAP 10-325MG 1 EACH TAB PO SCH (21:00)
[2021-03-03] MEDS: TAMSULOSIN 0.4 MG CAP.ER.24H PO SCH (21:59)
[2021-03-04 02:29] LABS: African American GFR (CKD) 57.4 (60.0-200.0); Albumin 3.9 g/dL (3.80-4.90); Albumin/Globulin Ratio 1.5 (1.60-3.17); Anion Gap 7.6 mmol/L (4.00-12.00); BUN/Creat Ratio 20.71 Ratio (12.00-20.00); Calcium 8.6 mg/dL (8.7-10.3); Carbon Dioxide 25.4 mmol/L (21.6-31.8); Globulin 2.6 g/dL (1.6-3.3); Non-African American GFR(CKD) 49.5 (60.0-200.0); Potassium 3.8 mmol/L (3.5-5.5); Total Bilirubin 0.8 mg/dL (0.2-1.2); Total Protein 6.5 g/dL (6.2-8.2)
[2021-03-04] MEDS: GABAPENTIN 400 MG CAP PO SCH ×3 (04:40→16:57)
[2021-03-04] MEDS: MORPHINE SULFATE ER 30 MG TABLET PO SCH ×2 (06:09→16:14)
[2021-03-04] MEDS: MORPHINE SULFATE ER 15 MG TABLET PO SCH ×2 (06:10→16:14)
[2021-03-04] MEDS: oxyCODONE-APAP 10-325MG 1 EACH TAB PO SCH ×2 (06:11→16:15)
[2021-03-04] MEDS: SODIUM CHLORIDE 0.9% 1,000 ML IV SCH ×4 (06:14→22:48)
[2021-03-04] MEDS: PIPERACILLIN-TAZOBACTAM 3.375 GM in SODIUM CHLORIDE 0.9% 100 ML IVPB SCH ×3 (06:14→21:42)
[2021-03-04] MEDS: TAMSULOSIN 0.4 MG CAP.ER.24H PO SCH ×2 (07:44→21:43)
[2021-03-04] MEDS: DOXAZOSIN 4 MG TAB PO SCH (07:44)
[2021-03-04] MEDS: PANTOPRAZOLE 40 MG/10 ML VIAL IV SCH (07:44)
[2021-03-04] MEDS ORDERED: lisinopriL 20 MG TAB PO SCH (09:00)
[2021-03-04 09:24] LABS: Basophils # (A) 0.02 X 10*3/uL (0.00-0.10); Basophils % (A) 0.2 %; Eosinophils # (A) 0.09 X 10*3/uL (0.04-0.35); Eosinophils % (A) 0.7 %; HCT 35.7 % (39.6-50.0); HGB 11.1 g/dL (13.0-17.0); Lymphocytes # (A) 1.01 X 10*3/uL (0.90-5.00); Lymphocytes % (A) 7.7 %; MCH 32.2 pg (27.0-32.0); MCHC 31.1 g/dL (32.0-37.0); MCV 103.5 fL (80.0-97.0); Mean Platelet Volume 10.7 fL (9.5-12.2); Monocytes # (A) 1.01 X 10*3/uL (0.20-1.00); Monocytes % (A) 7.7 %; Neutrophils # (A) 10.91 X 10*3/uL (1.80-7.70); Neutrophils % (A) 83.3 %; Platelet Count 183 X 10*3/uL (140-440); RBC 3.45 X 10*6/uL (4.40-5.60); WBC 13.09 X 10*3/uL (4.50-10.00)
[2021-03-04] MEDS ORDERED: HEPARIN SODIUM,PORCINE/PF 5,000 UNIT/0.5 ML SYRINGE SQ ONE (09:24)
[2021-03-04] MEDS ORDERED: BUPIVACAINE (PF) 0.25% 30 ML VIAL SQ ONE ×2 (09:27→09:58)
[2021-03-04] MEDS ORDERED: SUCCINYLCHOLINE CHLORIDE 100 MG/5 ML SYR IV ONE (09:31)
[2021-03-04] MEDS ORDERED: NEOSTIGMINE 1 MG/ML 10 ML VIAL ONE (09:31)
[2021-03-04] MEDS ORDERED: ePHEDrine SULFATE/0.9% NACL/PF 50 MG/5 ML SYRINGE IV ONE (09:31)
[2021-03-04] MEDS ORDERED: LIDOCAINE 1% INJ 10MG/ML (20 ML MDV) ONE (09:31)
[2021-03-04] MEDS ORDERED: PROPOFOL 10 MG/ML 20 ML VIAL IV ONE (09:31)
[2021-03-04] MEDS ORDERED: MIDAZOLAM 2 MG/2 ML VIAL ONE (09:31)
[2021-03-04] MEDS ORDERED: ROCURONIUM 10 MG/ML (5 ML VIAL) IV ONE (09:31)
[2021-03-04] MEDS ORDERED: GLYCOPYRROLATE 0.2 MG/ML 2 ML VIAL ONE (09:31)
[2021-03-04] MEDS ORDERED: fentaNYL (PF) 50 MCG/ML 2 ML AMP ONE (09:31)
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
[2021-03-04] MEDS ORDERED: IV FLUID CONTINUATION 1,000 ML IV ONE (09:33)
[2021-03-04] MEDS ORDERED: ONDANSETRON 4 MG/2 ML VIAL IVP ONE ×2 (09:33→11:30)
[2021-03-04] MEDS ORDERED: HEPARIN SODIUM,PORCINE 5,000 UNIT/ML 1 ML VIAL SQ ONE (09:34)
[2021-03-04] MEDS ORDERED: DEXAMETHASONE SOD PHOSPHATE 4 MG/ML 1 ML VIAL IVP ONE (09:34)
[2021-03-04] MEDS ORDERED: LACTATED RINGERS 1,000 ML IV ONE (10:03)
--- NOTE | 2021-03-04 11:07 | P.OP ---
Date of Procedure: 03/04/21 Preoperative Diagnosis: Acute cholecystitis Postoperative Diagnosis: Acute cholecystitis Procedure(s) Performed: Laparoscopic cholecystectomy Anesthesia: CLAUDIA Surgeon: Salomon Becker Estimated Blood Loss (ml): 10 Condition: stable Disposition: PACU Description of Procedure: Patient is brought operative suite remained in the supine position underwent general endotracheal anesthesia per Department of anesthesia prepped and draped usual sterile fashion timeout performed correct patient correct procedure correct site was verified. Due to the patient's previous surgical history and suspicion for adhesions in the lower pelvis a 5 mm incision was made at [facility] left upper quadrant and using 5 mm Visiport the abdomen was entered under direct visualization and the abdomen was insufflated following this a 5 mm port was placed just lateral to the umbilicus under direct visualization a 5 mm port was placed in the right upper quadrant laterally a 5 mm port was placed between these 2 in the right upper quadrant and a 11 mm port was placed subxiphoid. Adhesions were taken down bluntly the gallbladder was noted to be distended and inflamed. The gallbladder was retracted cephalad and the fundus was opened and suctioned to remove some bile to assist in retraction. Cystic duct and cystic artery were then skeletonized critical view was obtained there duly clipped and ligated the gallbladder was removed from the liver bed using Bovie electrocautery and hemostasis was achieved. The gallbladder was removed through the subxiphoid port with an Endo Catch bag and the area and fossa were then irrigated and suctioned hemostasis was once again noted. Surgical hemostatic agent was used on the liver bed to assure hemostasis due to the inflammation.. The subxiphoid port site fascia was closed with an 0 Vicryl with 8 of a Thomas-Steffi suture passer in interrupted fashion. The abdomen was desufflated and all ports removed under direct visualization and hemostasis was once again noted the skin was closed with 4-0 Monocryl subcuticular sutures and skin glue patient tolerated the procedure well no apparent complications
[2021-03-04] MEDS ORDERED: SODIUM CHLORIDE 0.9% 1,000 ML IV ONE (11:30)
[2021-03-04] MEDS ORDERED: HYDROmorphone 0.5 MG/0.5 ML SYRINGE IVP ONE ×3 (11:35→12:00)
[2021-03-04] MEDS ORDERED: HYDROmorphone 1 MG/ML 1 ML SYRINGE ONE (12:00)
[2021-03-04 14:17] LABS: African American GFR (CKD) 76.8 (60.0-200.0); Albumin 3.5 g/dL (3.80-4.90); Albumin/Globulin Ratio 1.52 (1.60-3.17); Calcium 8.3 mg/dL (8.7-10.3); Globulin 2.3 g/dL (1.6-3.3); Non-African American GFR(CKD) 66.2 (60.0-200.0); Potassium 4.5 mmol/L (3.5-5.5); Total Bilirubin 0.6 mg/dL (0.2-1.2); Total Protein 5.8 g/dL (6.2-8.2)
[2021-03-04] MEDS: buPROPion SR 150 MG TABLET.ER PO PRN (16:57)
--- NOTE | 2021-03-04 17:32 | XR ---
EXAMINATION TYPE: XR shoulder complete LT DATE OF EXAM: 03/04/2021 CLINICAL HISTORY: Left shoulder pain. Patient fell out of bed TECHNIQUE: Three views of the left shoulder are obtained. COMPARISON: None FINDINGS: There is no acute fracture/dislocation evident in the left shoulder. There is narrowing of the acromiohumeral space and acromioclavicular joint space. A rotator cuff tear is not excluded with narrowed acromiohumeral space. There is prominence of the central pulmonary vasculature of the left lung likely due to low lung volumes. A chest x-ray could be obtained. Soft tissues are unremarkable. Cervical spine hardware is partially visualized. IMPRESSION: 1. No evidence of acute fracture or dislocation of the left shoulder. 2. Mild narrowing of the left acromial clavicular joint is suggestive of vascular arthritis. 3. Narrowing of the acromiohumeral space can be seen with rotator cuff tear. 4.There is prominence of the central pulmonary vasculature of the left lung likely due to low lung vo lumes. A chest x-ray could be obtained.
[2021-03-04] MEDS ORDERED: HYDROcodone/APAP 5-325MG 1 EACH TAB PO PRN (20:41)
--- NOTE | 2021-03-04 21:25 | P.PN ---
Subjective Patient is admitted for acalculous cholecystitis patient underwent a laparoscopic cholecystectomy patient remains on IV fluids which will cut down to the bases and the patient remains on Zosyn. Patient was quite drowsy post surgery when I evaluated the patient. Constitutional: Denied any fatigue denied any fever. Cardio vascular: denied any chest pain, palpitations Gastrointestinal denied any nausea vomiting Pulmonary: Denied any shortness of breath cough Neurologic denied any new focal deficits All inpatient medications were reviewed and appropriate changes in these medications as dictated in the interval history and assessment and plan. PHYSICAL EXAMINATION: GENERAL: The patient is alert and oriented x3, not in any acute distress. Well developed, well nourished. HEENT: Pupils are round and equally reacting to light. EOMI. No scleral icterus. No conjunctival pallor. Normocephalic, atraumatic. No pharyngeal erythema. No thyromegaly. CARDIOVASCULAR: S1 and S2 present. No murmurs, rubs, or gallops. PULMONARY: Chest is clear to auscultation, no wheezing or crackles. ABDOMEN: Soft, nontender, nondistended, normoactive bowel sounds. No palpable organomegaly. Surgical site areas appear to be clean MUSCULOSKELETAL: No joint swelling or deformity. EXTREMITIES: No cyanosis, clubbing, or pedal edema. NEUROLOGICAL: Gross neurological examination did not reveal any focal deficits. SKIN: No rashes. Assessment and plan - cholecystitis patient will be continued on Zosyn patient is status post cholecystectomy -Acute renal failure improved at this time. -Leukocytosis secondary to cholecystitis -Hyperlipidemia -History of PE in the past patient is presently not on any anticoagulation -Depression Objective - Vital Signs Vital signs: Vital Signs Temp 97.8 F 03/04/21 14:11 Pulse 88 03/04/21 14:11 Resp 20 03/04/21 14:11 BP 125/76 03/04/21 14:11 Pulse Ox 92 L 03/04/21 14:11 Intake & Output 03/04/21 03/04/21 03/05/21 06:59 18:59 06:59 Intake Total 1120 Output Total 10 Balance 1110 Weight 86.183 kg Intake: IV 1120 Sodium Chloride 0.9% 1, 520 000 ml @ 130 mls/hr IV . [id number] [facility] Rx#:[id number] Output: Estimated Blood Loss 10 Other: # Voids 2 - Labs CBC & Chem 7: 06/29/21 06:14 03/04/21 06:14 Labs: Abnormal Lab Results - Last 24 Hours (Table) 03/03/21 03/04/21 03/04/21 Range/Units 19:20 06:14 06:14 WBC 13.09 H (4.50-10.00) X 10*3/uL RBC 3.45 L (4.40-5.60) X 10*6/uL Hgb 11.1 L (13.0-17.0) g/dL Hct 35.7 L (39.6-50.0) % MCV 103.5 H (80.0-97.0) fL MCH 32.2 H (27.0-32.0) pg MCHC 31.1 L (32.0-37.0) g/dL Immature Gran # 0.05 H (0.00-0.04) X 10*3/uL Neutrophils # 10.91 H (1.80-7.70) X 10*3/uL Monocytes # 1.01 H (0.20-1.00) X 10*3/uL BUN 29.0 H (9.0-27.0) mg/dL Est GFR (CKD-EPI)AfAm 57.4 L (60.0-200.0) Est GFR (CKD-EPI)NonAf 49.5 L (60.0-200.0) BUN/Creatinine Ratio 20.71 H (12.00-20.00) Ratio Glucose 130 H (70-110) mg/dL Calcium 8.6 L 8.3 L (8.7-10.3) mg/dL AST 44 H 36 H (14-35) U/L Total Protein 5.8 L (6.2-8.2) g/dL Albumin 3.50 L (3.80-4.90) g/dL Albumin/Globulin Ratio 1.50 L 1.52 L (1.60-3.17) g/dL
[2021-03-04] MEDS: HYDROmorphone 1 MG/ML 1 ML SYRINGE IVP PRN (21:43)
[2021-03-05] MEDS: HYDROmorphone 1 MG/ML 1 ML SYRINGE IVP PRN ×2 (01:25→07:07)
[2021-03-05] MEDS: GABAPENTIN 400 MG CAP PO SCH ×2 (03:20→10:15)
[2021-03-05] MEDS: PIPERACILLIN-TAZOBACTAM 3.375 GM in SODIUM CHLORIDE 0.9% 100 ML IVPB SCH ×2 (03:55→10:15)
[2021-03-05] MEDS: oxyCODONE-APAP 10-325MG 1 EACH TAB PO SCH (05:01)
[2021-03-05] MEDS: MORPHINE SULFATE ER 30 MG TABLET PO SCH (05:08)
[2021-03-05] MEDS: MORPHINE SULFATE ER 15 MG TABLET PO SCH (05:09)
[2021-03-05 06:58] VITALS: PULSE 79; RESP 24
[2021-03-05] MEDS: DOXAZOSIN 4 MG TAB PO SCH (07:07)
[2021-03-05] MEDS: PANTOPRAZOLE 40 MG/10 ML VIAL IV SCH (07:07)
[2021-03-05] MEDS: TAMSULOSIN 0.4 MG CAP.ER.24H PO SCH (07:07)
[2021-03-05] MEDS ORDERED: lisinopriL 20 MG TAB PO SCH (09:00)
[2021-03-05 09:47] LABS: HCT 36.3 % (39.6-50.0); HGB 11.5 g/dL (13.0-17.0); MCH 32.4 pg (27.0-32.0); MCHC 31.7 g/dL (32.0-37.0); MCV 102.3 fL (80.0-97.0); Mean Platelet Volume 10.5 fL (9.5-12.2); Platelet Count 217 X 10*3/uL (140-440); RBC 3.55 X 10*6/uL (4.40-5.60); RDW 12.9 % (11.5-14.5); WBC 11.27 X 10*3/uL (4.50-10.00)
[2021-03-05] MEDS: buPROPion SR 150 MG TABLET.ER PO PRN (10:15)
[2021-03-05] MEDS: SODIUM CHLORIDE 0.9% 1,000 ML IV SCH (10:17)
[2021-03-05 10:36] LABS: African American GFR (CKD) 97.9 (60.0-200.0); Anion Gap 8.8 mmol/L (4.00-12.00); BUN/Creat Ratio 16.67 Ratio (12.00-20.00); Calcium 8.9 mg/dL (8.7-10.3); Carbon Dioxide 25.2 mmol/L (21.6-31.8); Non-African American GFR(CKD) 84.4 (60.0-200.0); Potassium 4.3 mmol/L (3.5-5.5)
--- NOTE | 2021-03-05 13:21 | P.PN ---
Subjective Progress Note Date: 03/05/21 Patient doing well today, no complaints, tolerating diet Objective - Vital Signs Vital signs: Vital Signs Temp 98.1 F 03/05/21 06:39 Pulse 79 03/05/21 06:39 Resp 24 03/05/21 06:39 BP 161/86 03/05/21 06:39 Pulse Ox 91 L 03/05/21 06:39 Intake & Output 03/04/21 03/05/21 03/05/21 18:59 06:59 18:59 Intake Total 1120 Output Total 10 Balance 1110 Intake: IV 1120 Sodium Chloride 0.9% 1, 520 000 ml @ 75 mls/hr IV . [id number] [facility] Rx#:[id number] Output: Estimated Blood Loss 10 Other: Voiding Method Urinal Urinal # Voids 3 1 - Cardiovascular Rhythm: regular - Gastrointestinal Gastrointestinal Comment(s): s/nt/nd - Labs CBC & Chem 7: 03/05/21 06:34 03/05/21 06:34 Labs: Abnormal Lab Results - Last 24 Hours (Table) 03/04/21 03/05/21 03/05/21 Range/Units 06:14 06:34 06:34 WBC 11.27 H (4.50-10.00) X 10*3/uL RBC 3.55 L (4.40-5.60) X 10*6/uL Hgb 11.5 L (13.0-17.0) g/dL Hct 36.3 L (39.6-50.0) % MCV 102.3 H (80.0-97.0) fL MCH 32.4 H (27.0-32.0) pg MCHC 31.7 L (32.0-37.0) g/dL Glucose 130 H 116 H (70-110) mg/dL Calcium 8.3 L (8.7-10.3) mg/dL AST 36 H (14-35) U/L Total Protein 5.8 L (6.2-8.2) g/dL Albumin 3.50 L (3.80-4.90) g/dL Albumin/Globulin Ratio 1.52 L (1.60-3.17) g/dL Microbiology - Last 24 Hours (Table) 03/03/21 19:11 Blood Culture - Preliminary Blood No Growth after 24 hours Assessment and Plan Assessment: POD1 leia joe Plan: diet aas tolerated, low fat, stable for DC home follow up in my office in 2 weeks
[2021-03-05 14:05] VITALS: BP 152/93; TEMP 98.6
--- NOTE | 2021-03-05 16:24 | P.DS ---
Providers Date of admission: 03/03/21 15:53 Attending physician: Cha Olvera Consults: 03/03/21 15:53 Consult Physician Urgent Consulting Provider: Salomon Becker Consult Reason/Comments: ab pain Do you want consulting provider notified?: Yes Primary care physician: Luciana Anton Hospital Course: Patient is admitted for acalculous cholecystitis patient underwent a laparoscopic cholecystectomy patient remains on IV fluids which will cut down to the bases and the patient remains on Zosyn. Patient was quite drowsy post surgery when I evaluated the patient. 03/05/2021 Patient is able to tolerate diet patient is clinically doing well post surgery passing gas patient will be discharged today, antibiotics as per surgery. PHYSICAL EXAMINATION: GENERAL: The patient is alert and oriented x3, not in any acute distress. Well developed, well nourished. HEENT: Pupils are round and equally reacting to light. EOMI. No scleral icterus. No conjunctival pallor. Normocephalic, atraumatic. No pharyngeal erythema. No thyromegaly. CARDIOVASCULAR: S1 and S2 present. No murmurs, rubs, or gallops. PULMONARY: Chest is clear to auscultation, no wheezing or crackles. ABDOMEN: Soft, nontender, nondistended, normoactive bowel sounds. No palpable organomegaly. Surgical site areas appear to be clean MUSCULOSKELETAL: No joint swelling or deformity. EXTREMITIES: No cyanosis, clubbing, or pedal edema. NEUROLOGICAL: Gross neurological examination did not reveal any focal deficits. SKIN: No rashes. Assessment and plan -Acute cholecystitis status post cholecystectomy -Acute renal failure improved at this time. -Leukocytosis secondary to cholecystitis, improved -Hyperlipidemia -History of PE in the past patient is presently not on any anticoagulation Plan - Discharge Summary Discharge Rx Participant: No New Discharge Prescriptions: Continue lisinopriL 40 mg PO DAILY Pantoprazole Sodium [Protonix] 40 mg PO DAILY Terazosin [Hytrin] 5 mg PO DAILY oxyCODONE-APAP 10-325MG [Percocet 10-325 mg] 1 tab PO BID buPROPion HCL [Wellbutrin SR] 150 mg PO Q12H Gabapentin [Neurontin] 800 mg PO Q8H Butalb/Acetaminophen/Caffeine [Esgic 50-325-40 mg Tablet] 1 tab PO DAILY PRN PRN Reason: Migraine Headache Morphine Sulfate [Ms Contin] 15 mg PO BID@0500,1700 Morphine Sulfate [Ms Contin] 30 mg PO BID@0500,1700 Atorvastatin [Lipitor] 20 mg PO DAILY Tamsulosin [Flomax] 0.4 mg PO BID Discharge Medication List Pantoprazole Sodium [Protonix] 40 mg PO DAILY 04/07/16 [History] lisinopriL 40 mg PO DAILY 04/07/16 [History] Terazosin [Hytrin] 5 mg PO DAILY 01/21/18 [History] buPROPion HCL [Wellbutrin SR] 150 mg PO Q12H 03/22/19 [History] oxyCODONE-APAP 10-325MG [Percocet 10-325 mg] 1 tab PO BID 03/22/19 [History] Gabapentin [Neurontin] 800 mg PO Q8H 11/27/20 [History] Morphine Sulfate [Ms Contin] 30 mg PO BID@0500,1700 01/21/21 [History] Atorvastatin [Lipitor] 20 mg PO DAILY 03/01/21 [History] Butalb/Acetaminophen/Caffeine [Esgic 50-325-40 mg Tablet] 1 tab PO DAILY PRN 03/01/21 [History] Morphine Sulfate [Ms Contin] 15 mg PO BID@0500,1700 03/01/21 [History] Tamsulosin [Flomax] 0.4 mg PO BID 03/01/21 [History] Follow up Appointment(s)/Referral(s): Salomon Becker DO [Doctor of Osteopathic Medicine] - 2 Weeks Luciana Anton MD [Primary Care Provider] - 3 Days Patient Instructions/Handouts: *Surgery [facility] - Laparoscopic Cholecystectomy Discharge Instructions, Laparoscopic Cholecystectomy (DC) Discharge Disposition: HOME SELF-CARE
== END 2021-03-05 15:03 | disposition home or self-care (01) ==
LOC: EC 10:48 → 6NMEDSUR 15:53
PROVIDERS: ADMIT Hospitalist; ATTEND Hospitalist
DX: K81.0 Acute cholecystitis (principal); N17.0 Acute kidney failure with tubular necrosis; E86.0 Dehydration; E78.5 Hyperlipidemia, unspecified; Z20.822 Contact with and (suspected) exposure to COVID-19; D64.9 Anemia, unspecified; E87.1 Hypo-osmolality and hyponatremia; M25.512 Pain in left shoulder; W06.XXXA Fall from bed, initial encounter; Y93.9 Activity, unspecified; Y92.9 Unspecified place or not applicable; K21.9 Gastro-esophageal reflux disease without esophagitis; G47.30 Sleep apnea, unspecified; F32.9 Major depressive disorder, single episode, unspecified; M19.90 Unspecified osteoarthritis, unspecified site; J30.2 Other seasonal allergic rhinitis; Z79.899 Other long term (current) drug therapy; Z91.09 Other allergy status, other than to drugs and biological substances; Z98.1 Arthrodesis status; Z87.11 Personal history of peptic ulcer disease; Z86.718 Personal history of other venous thrombosis and embolism; Z86.711 Personal history of pulmonary embolism; Z87.891 Personal history of nicotine dependence
CPT/HCPCS: 47562; 96374; 99285; 36415; 93005; 88304; 80053 ×2; 80048; 82150; 82247; 83690; 85025 ×2; 85027; 85610; 85730; 81001; 87040; 87635; 73030; 71045; 74018; 74176; G0378 ×3; J2543 ×3; J2250; J1644; J1100; J2710; S0106 ×2; J2405 ×3; J2001; J3010; J1170 ×3; J0330; J2704; C9113 ×2

== ENCOUNTER → 2021-06-09 | Outpatient (CLI) | payer MEDICARE, OTHER ==
--- NOTE | 2021-06-09 11:07 | US ---
EXAMINATION TYPE: US duplex aorta DATE OF EXAM: 06/09/2021 COMPARISON: CT March 03, 2021 CLINICAL HISTORY: I71.9 Aortic aneurysm of unspecified site. AAA visualized on CT EXAM MEASUREMENTS: Abdominal Aorta: Proximal: Unable to visualize due to overlying bowel gas Mid: 2.0 x 2.1 cm Distal: 3.0 x 3.1 cm (Sagittal AP measurement= 3.2 cm) Bifurcation: JENNA: 1.0 x 1.0 cm ALIYAH: 1.0 x 1.0 cm Aorta is successfully visualized through the bifurcation with aneurysmal to 3.2 cm distally redemonst rated. This does not extend into the iliac artery bifurcation. IMPRESSION: Stable 3.2 cm distal AAA.
== END | disposition home or self-care (01) ==
LOC: RADUSWWP 09:11
PROVIDERS: ATTEND Family Medicine
DX: I71.4 Abdominal aortic aneurysm, without rupture (principal)
CPT/HCPCS: 93979

== ENCOUNTER 2021-08-02 15:12 | Emergency (ER) | payer MEDICARE, OTHER ==
[2021-08-02 16:16] VITALS: BP 167/92; PULSE 69; RESP 18; TEMP 97.8
[2021-08-02] MEDS ORDERED: HYDROcodone/APAP 5-325MG 1 EACH TAB PO STA (18:52)
[2021-08-02] MEDS ORDERED: IBUPROFEN 600 MG TAB PO STA (18:52)
[2021-08-02] MEDS ORDERED: LIDOCAINE 1% INJ 10MG/ML (20 ML MDV) SQ ONE (19:10)
[2021-08-02] MEDS ORDERED: BACITRACIN OINT 1 EACH PACKET TOPICAL ONE (19:10)
[2021-08-02] MEDS ORDERED: AMOXIC-POT CLAV 875-125MG 1 EACH TAB PO STA (19:11)
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
[2021-08-02] MEDS ORDERED: AMOXIC-POT CLAV 875MG STARTER PACK 2 TAB BTL PO STA (20:39)
== END 2021-08-02 21:00 | disposition home or self-care (01) ==
LOC: EC 15:12
DX: S00.211A Abrasion of right eyelid and periocular area, initial encounter (principal); K21.9 Gastro-esophageal reflux disease without esophagitis; E78.5 Hyperlipidemia, unspecified; F32.A Depression, unspecified; Z86.718 Personal history of other venous thrombosis and embolism; Z86.711 Personal history of pulmonary embolism; Z90.49 Acquired absence of other specified parts of digestive tract; W55.03XA Scratched by cat, initial encounter
CPT/HCPCS: 99283; 12013; J2001

== ENCOUNTER → 2022-05-13 | Outpatient (CLI) | payer MEDICARE, OTHER ==
[2022-05-13 08:48] LABS: African American GFR (CKD) >90 (>60 ml/min/1.73 sqM); Blood Urea Nitrogen 14 mg/dL (9-20); Non-African American GFR(CKD) >90 (>60 ml/min/1.73 sqM)
--- NOTE | 2022-05-15 16:05 | CT ---
EXAMINATION TYPE: CT abdomen w con CT DLP: 860 mGycm, Automated exposure control for dose reduction was used. DATE OF EXAM: 05/13/2022 9:48 AM COMPARISON: THIS EXAM WAS READ DURING PACS DOWNTIME, NO PRIORS AVAILABLE. CLINICAL INDICATION:Male, 77 years old with history of R10.10 UPPER ABDOMINAL PAIN,R19.06EPIGASTRIC S WELL; TECHNIQUE: Axial CT of the abdomen and pelvis. Sagittal and coronal reformats were created on a [employer] workstation. Contrast used 50 cc of Isovue 300. Oral contrast used: Done FINDINGS: LOWER CHEST: Heart is mildly enlarged for size with coronary artery atherosclerosis present. ABDOMEN LIVER: Unremarkable GALLBLADDER AND BILE DUCTS: Gallbladder is surgically absent with mild intrahepatic and extra hepatic biliary dilatation likely physiologic and a postcholecystectomy change. No evidence of choledocholit hiasis. PANCREAS: Unremarkable. SPLEEN: Unremarkable. ADRENAL GLANDS: Unremarkable. KIDNEYS AND URETERS: No evidence of hydronephrosis or renal calculus. The ureters are unremarkable. PELVIS BLADDER: Unremarkable REPRODUCTIVE: Unremarkable. ABDOMEN & PELVIS STOMACH AND BOWEL: No evidence of bowel obstruction. PERITONEUM: No evidence of pneumoperitoneum or free fluid. VASCULATURE: Partially visualized aneurysmal dilation of the of the infrarenal aorta measuring up to 2.9 cm with with penetrating atherosclerotic ulcer suspected to be present.. MUSCULOSKELETAL: No acute osseous abnormalities, L5-S1 fixation hardware which appears intact. There is discectomy at L5-S1. Additional multilevel disc degeneration changes are present. LYMPH NODES: No gross evidence for lymphadenopathy. SOFT TISSUE/ABDOMINAL WALL: Unremarkable IMPRESSION: No priors were available at the time of this examination to compare due to PACS downtime. 1. No evidence for acute abdominal process to explain the patient's pain. 2. Mild intrahepatic and extrahepatic biliary dilation which can be seen in setting of postcholecyst ectomy physiology. 3. Infrarenal aortic aneurysm with suspected penetrating atherosclerotic ulcer. This can be further evaluated with CTA abdomen and pelvis if not recently performed.
== END | disposition home or self-care (01) ==
LOC: RADCTMAIN 07:46
PROVIDERS: ATTEND Family Medicine
DX: K83.8 Other specified diseases of biliary tract (principal); I71.4 Abdominal aortic aneurysm, without rupture
CPT/HCPCS: 82565; 84520; 74160; 36415; Q9967

== ENCOUNTER → 2022-07-02 | Outpatient (CLI) | payer MEDICARE, OTHER ==
[2022-07-02 13:47] LABS: African American GFR (CKD) >90 (>60 ml/min/1.73 sqM); Blood Urea Nitrogen 12 mg/dL (9-20); Non-African American GFR(CKD) 85 (>60 ml/min/1.73 sqM)
--- NOTE | 2022-07-02 15:50 | CT ---
INDICATION: Patient age:Male; 77 years old; Reason for study: I71.40 AAA; [facility]. COMPARISON: CT abdomen 05/13/2022 CT abdomen and pelvis 03/01/2021 TECHNIQUE: Multiple thin slice sub-millimeter images were obtained through the abdomen before and aft er the uneventful administration of 100 cc of Isovue-[address] intravenously. One or more CT dose reduction strategies were utilized during this examination. DLP administered was 610 mGycm. FINDINGS: CTA Abdomen: Infrarenal abdominal aortic aneurysm measuring up to 3.9 cm with thrombosed aneurysm on the left lateral wall redemonstrated. Moderate atherosclerotic calcification of the aorta and its bra nches. The celiac axis, SMA, and CHRISTIN are patent. There are 2 right and one left renal arteries that a re patent. VISCERA ABDOMEN: Liver: Unremarkable. Gallbladder and Bile ducts: Postcholecystectomy. Prominent intra and extra hepatic biliary duct dilat ation which is nonspecific in setting of cholecystectomy, unchanged. Pancreas: Fatty infiltration. Spleen: Unremarkable. Adrenal glands: Unremarkable. Kidneys and Ureters: No hydronephrosis or renal calculus. Kidneys enhance symmetrically without evide nce of focal lesion. Stomach and Bowel: No evidence of bowel obstruction or bowel wall thickening. Peritoneum: No evidence of pneumoperitoneum, free fluid, or adenopathy. Musculoskeletal: The osseous structures appear intact. No aggressive osseous lesions. Postsurgical ch anges with bilateral screws and vertical rods involving L5-S1. There is discectomy at L5-S1. Mild mul tilevel degenerative disc disease. LOWER CHEST: Trace right pleural effusion. Coronary artery calcifications. Aortic valvular calcificat ions. Trace pericardial fluid. Mild cardiomegaly. IMPRESSION: 1. Stable infrarenal abdominal aortic aneurysm with thrombosed aneurysm on the left lateral wall. 2. Trace right pleural effusion.
== END | disposition home or self-care (01) ==
LOC: RADCTMAIN 12:59
PROVIDERS: ATTEND Family Medicine
DX: I71.43 Infrarenal abdominal aortic aneurysm, without rupture (principal); J90 Pleural effusion, not elsewhere classified
CPT/HCPCS: 82565; 84520; 74175; 36415; Q9967

== ENCOUNTER → 2022-12-03 | Outpatient (CLI) | payer MEDICARE, OTHER ==
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
== END | disposition home or self-care (01) ==
LOC: RADMRIMAIN 11:37
PROVIDERS: ATTEND Nurse Practitioner Family
DX: M19.071 Primary osteoarthritis, right ankle and foot (principal); M67.813 Other specified disorders of tendon, right shoulder

== ENCOUNTER → 2023-08-02 | Outpatient (CLI) | payer MEDICARE, OTHER ==
--- NOTE | 2023-08-02 09:40 | US ---
EXAMINATION TYPE: US duplex aorta DATE OF EXAM: 08/02/2023 COMPARISON: CTa 2021, US 2020 CLINICAL INDICATION: Male, 78 years old with history of I71.40 ABDOMINAL AORTIC ANEURYSM, WITHOUT RUP TURE,; Hx of AAA. TECHNIQUE: Multiple sonographic images of the abdominal aorta are obtained. FINDINGS: EXAM MEASUREMENTS: Abdominal Aorta: Proximal: Obscured Mid: Obscured. Small portion of mid-distal aorta seen. Distal: 3.4 x 3.2 cm Bifurcation: Obscured TUBE TEST TECHNICIAN NOTES: AAA noted distal aorta measuring 3.4 x 3.2 cm. Limited exam due to patient body dumont bitus and gas. IMPRESSION: Normal aortic aneurysm measuring up to 3 0.4 cm which has increased from 06/09/2021 ultras ound.
== END | disposition home or self-care (01) ==
LOC: RADUSWWP 08:53
PROVIDERS: ATTEND Family Medicine
DX: I71.40 Abdominal aortic aneurysm, without rupture, unspecified (principal)
CPT/HCPCS: 93979

== ENCOUNTER → 2024-07-03 | Outpatient (CLI) | payer MEDICARE, OTHER ==
[2024-07-03 13:37] VITALS: BP 144/81; PULSE 83; RESP 16; TEMP 98
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
== END ==
LOC: PNWHC3 12:40
PROVIDERS: ATTEND Specialist
DX: M43.16 Spondylolisthesis, lumbar region (principal); M48.062 Spinal stenosis, lumbar region with neurogenic claudication; M47.26 Other spondylosis with radiculopathy, lumbar region; Z91.048 Other nonmedicinal substance allergy status; Z87.891 Personal history of nicotine dependence
CPT/HCPCS: 99202